=== PATIENT | female | born 1980 | race Caucasian/White ===

== ENCOUNTER → 2018-05-08 17:11 | Outpatient (REF) | payer OTHER, SELFPAY ==
[2018-05-08 17:14] LABS: HCG Quantitative /Beta subunit < 2.39 mIU/mL
== END ==
LOC: LAB 17:11
PROVIDERS: Visit Provider Family Medicine
DX: N91.2 Amenorrhea, unspecified (principal)
CPT/HCPCS: 84702

== ENCOUNTER → 2021-12-20 16:39 | Outpatient (CLI) | payer OTHER, SELFPAY ==
[2021-12-20 17:50] LABS: INR 1.1 (0.9-1.3); Prothrombin Time 12.7 SECONDS (10.1-12.7)
[2021-12-20 17:59] LABS: Alanine Aminotransferase 19 IU/L (<35); Albumin 4.2 g/dL (3.5-5.0); Albumin Globulin Ratio 1.4 (1.0-2.8); Alkaline Phosphatase 39 U/L (38-126); Aspartate Aminotransferase 29 IU/L (14-36); BUN Creatinine Ratio 14.3 (6-22); Bilirubin Total 0.9 mg/dL (0.2-1.3); Blood Urea Nitrogen 10 mg/dL (7-17); C-Reactive Protein Quant < 0.5 mg/dL (<1.0); Calcium 9.1 mg/dL (8.4-10.2); Carbon Dioxide 28 mmol/L (22-32); Chloride 101 mmol/L (98-107); Estimated Glomerular Filt Rate > 60 mL/min (>60); Globulin 3.1 g/dL (1.7-4.1); Glucose 84 mg/dL (70-100); HEMOLYSIS < 15 (0-50); Magnesium 1.9 mg/dL (1.6-2.3); Sodium 135 mmol/L (137-145); Total Protein 7.3 g/dL (6.3-8.2)
[2021-12-20 18:26] LABS: TSH w/ Reflex to FT4 0.79 uIU/mL (0.47-4.68)
== END ==
PROVIDERS: Referring Provider Family Medicine; Visit Provider Family Medicine
DX: F90.1 Attention-deficit hyperactivity disorder, predominantly hyperactive type (principal); M79.10 Myalgia, unspecified site; T14.8XXA Other injury of unspecified body region, initial encounter
CPT/HCPCS: 36415; 80053; 83735; 84443; 85610; 86140

== ENCOUNTER 2022-11-07 12:42 | Emergency (ER) | payer OTHER, SELFPAY ==
[2022-11-07 12:48] VITALS: BP 123/74; PULSE 83; RESP 16; TEMP 36.4; O2SAT 100
--- NOTE | 2022-11-07 12:58 | DI.CT.S_ITS ---
PROCEDURE: CT ABDOMEN PELVIS W CON INDICATIONS: Abdominal distention, bloating, right lower quadrant pain TECHNIQUE: After the administration of intravenous contrast, axial sections acquired from the lung bases to the pubic symphysis. Coronal and sagittal reformats were performed. For radiation dose reduction, the following was used: automated exposure control, adjustment of mA and/or kV according to patient size. COMPARISON: None. FINDINGS: Image quality: Excellent. Lung bases: Unremarkable. Heart: No significant findings. ABDOMEN: Liver: Unremarkable. Gallbladder: Unremarkable. Biliary ducts: Unremarkable. Pancreas: Unremarkable. Spleen: Unremarkable. Adrenal Glands: Unremarkable. Kidneys and Ureters: Unremarkable. Stomach and Bowel: Moderately large fecal load. The appendix is not identified. There are no secondary signs of acute appendicitis. Peritoneum: No abnormal intraperitoneal fluid. No free air. Ventral Wall: No hernias. Abdominal Nodes: No retroperitoneal or mesenteric adenopathy by size criteria. Vessels: Aorta and inferior vena cava are normal in size. PELVIS: Pelvic Organs: Unremarkable uterus. There is a right adnexal cyst which measures 2.8 cm. . Bladder: Unremarkable. Pelvic Nodes: No enlarged lymph nodes. Miscellaneous: No hernias are seen. Bones: Unremarkable. IMPRESSION: 1. No appendix is visualized. No secondary signs of acute appendicitis. Moderately large fecal load. 2. 2.8 cm cystic lesion of the right adnexa. Dictated by: Tl Corbett M.D. on 11/07/2022 at 13:52 Approved by: Tl Corbett M.D. on 11/07/2022 at 13:56
--- NOTE | 2022-11-07 13:02 | ED_ITS ---
HPI - Abdominal Pain <MARIALUISA Shipley - Last Filed: 11/07/22 15:25> General Chief Complaint: Abdominal Pain Stated Complaint: stomach has tripled in size/pain Time Seen by Provider: 11/07/22 12:56 Source: patient Mode of arrival: Ambulatory History of Present Illness HPI narrative: This is a 41 presents emergency department complaining of right lower quadrant pain, bloating and generalized abdominal distension which has gotten worse since 5 days ago. Denies vaginal discharge or bleeding. Has a remote history of tubal ligation 7 years ago. She states that her last menstrual period was 10/27/2022, denies abnormal vaginal discharge, complains of right sided pelvic and lower quadrant pain with mild nausea. Denies recent fatigue, fever, chills, vomiting, illness, stool changes or any urinary changes. Related Data Home Medications Medication Instructions Recorded Confirmed CA/FE/FOLIC ACID/VIT A/VIT B 1 tab PO QDAY ##0 08/13/11 (# VITAMIN) Allergies Allergy/AdvReac Type Severity Reaction Status Date / Time Latex, Natural Rubber Allergy Severe Hives Verified 11/07/22 14:56 adhesive Allergy Mild Verified 11/07/22 14:56 aloe Allergy Mild Verified 11/07/22 14:56 nut - unspecified Allergy Unknown Verified 11/07/22 14:56 hydrocodone AdvReac Mild NAUSEA Verified 11/07/22 14:56 Review of Systems <MARIALUISA Shipley - Last Filed: 11/07/22 15:25> Review of Systems ROS Unobtainable: All systems reviewed & are unremarkable except as noted in HPI and below Patient History <MARIALUISA Shipley - Last Filed: 11/07/22 15:25> Social History Smoking Status: Never smoker Smoking Status: Never smoker alcohol intake frequency: holidays/special occasions only Substance Use Type: does not use Exam <MARIALUISA Shipley - Last Filed: 11/07/22 15:25> Narrative Exam Narrative: Reviewed vitals signs and nursing notes. General: Pleasant, sitting upright, in no acute distress, well groomed, afebrile HEENT: symmetrical facial expressions, moist mucous membranes, neck is supple CV: regular rate and rhythm, warm extremities Respiratory: normal work of breathing, without tachypnea or hypoxia. GI: abdomen soft, mild distention, no CVA tenderness, her abdomen is tender to the right lower quadrant as well as the right pelvic region, she reports it was painful in the drive over and walking causes pain to the whole generalized right lower quadrant region MSK: moves all extremities, no weakness, normal tone, ambulatory without deficit Skin: brisk capillary refill, without rash or wound Neuro: clear speech and normal cognition, A&O x3, GCS 15, no focal motor or sensation deficits Initial Vital Signs Initial Vital Signs: Vital Signs Temperature 97.6 F 11/07/22 12:48 Pulse Rate 83 11/07/22 12:48 Respiratory Rate 16 11/07/22 12:48 Blood Pressure 123/74 11/07/22 12:48 Pulse Oximetry 100 11/07/22 12:48 Oxygen Delivery Method Room Air 11/07/22 12:48 <Neymar Conti DO - Last Filed: 11/08/22 06:30> Initial Vital Signs Initial Vital Signs: Vital Signs Temperature 97.6 F 11/07/22 12:48 Pulse Rate 83 11/07/22 12:48 Respiratory Rate 16 11/07/22 12:48 Blood Pressure 123/74 11/07/22 12:48 Pulse Oximetry 100 11/07/22 12:48 Oxygen Delivery Method Room Air 11/07/22 12:48 Course <MARIALUISA Shipley - Last Filed: 11/07/22 15:25> Orders Ordered: Discontinued Medications Polyethylene Glycol (Polyethylene Glycol 3350 17 Gm Powd.Pack) 17 gm PO NOW ONE Stop: 11/07/22 14:03 Last Admin: 11/07/22 14:57 Dose: 17 gm Documented By: KOJO Vital Signs Vital signs: Vital Signs - 8 hr 11/07/22 12:48 11/07/22 14:58 Temperature 97.6 F Pulse Rate 83 70 Respiratory Rate 16 14 Blood Pressure 123/74 124/78 Pulse Oximetry 100 99 Oxygen Delivery Method Room Air Room Air <Neymar Conti DO - Last Filed: 11/08/22 06:30> Orders Ordered: Discontinued Medications Polyethylene Glycol (Polyethylene Glycol 3350 17 Gm Powd.Pack) 17 gm PO NOW ONE Stop: 11/07/22 14:03 Last Admin: 11/07/22 14:57 Dose: 17 gm Documented By: KOJO Vital Signs Vital signs: Vital Signs - 8 hr 11/07/22 12:48 11/07/22 14:58 Temperature 97.6 F Pulse Rate 83 70 Respiratory Rate 16 14 Blood Pressure 123/74 124/78 Pulse Oximetry 100 99 Oxygen Delivery Method Room Air Room Air MDM - Abdominal Pain <SHARON ShipleyP - Last Filed: 11/07/22 15:25> Lab Data 11/07/22 13:25 11/07/22 13:25 Labs: Lab Results 11/07/22 11/07/22 11/07/22 Range/Units 13:16 13:25 13:25 WBC 6.0 (4.5-11.0) X10^3/uL RBC 4.32 (4.0-5.2) X10^6/uL Hgb 12.9 (12.0-16.0) g/dL Hct 38.2 (36-46) % MCV 88.6 (80-100) fL MCH 30.0 (26-34) PG MCHC 33.8 (30-36) % RDW 12.5 (11.6-14.8) % Plt Count 176 (150-400) X10^3/uL Neut % (Auto) 58.7 (50-75) % Lymph % (Auto) 34.7 (25-40) % [place] % (Auto) 5.3 (3-14) % Eos % (Auto) 0.8 L (2-4) % Baso % (Auto) 0.5 (0-2) % Neut # (Auto) 3500 (7930-0415) /uL Lymph # (Auto) 2100 (5178-0277) /uL [place] # (Auto) 300 (0-900) /uL Eos # (Auto) 0 (0-450) /uL Baso # (Auto) 0 (0-100) /uL Sodium 138 (137-145) mmol/L Potassium 3.8 (3.4-5.1) mmol/L Chloride 101 (98-107) mmol/L Carbon Dioxide 29 (22-32) mmol/L BUN 10 (7-17) mg/dL Creatinine 0.65 (0.52-1.04) mg/dL Estimated GFR > 60 (>60) mL/min BUN/Creatinine Ratio 15.4 (6-22) Glucose 95 (70-100) mg/dL Calcium 9.3 (8.4-10.2) mg/dL Total Bilirubin 0.5 (0.2-1.3) mg/dL AST 24 (14-36) IU/L ALT 19 (<35) IU/L Alkaline Phosphatase 35 L (38-126) U/L Total Protein 7.6 (6.3-8.2) g/dL Albumin 4.4 (3.5-5.0) g/dL Globulin 3.2 (1.7-4.1) g/dL Albumin/Globulin Ratio 1.4 (1.0-2.8) Lipase 77 (23-300) U/L HCG, Quant mIU/mL Urine RBC None seen (0-5/HPF) Urine WBC None seen (0-5/HPF) Ur Squamous Epith Cells 0-1 /hpf (0-5/HPF) Urine Bacteria None seen (None) Ur Culture Indicated? Cult not indicated 11/07/22 Range/Units 13:25 WBC (4.5-11.0) X10^3/uL RBC (4.0-5.2) X10^6/uL Hgb (12.0-16.0) g/dL Hct (36-46) % MCV (80-100) fL MCH (26-34) PG MCHC (30-36) % RDW (11.6-14.8) % Plt Count (150-400) X10^3/uL Neut % (Auto) (50-75) % Lymph % (Auto) (25-40) % [place] % (Auto) (3-14) % Eos % (Auto) (2-4) % Baso % (Auto) (0-2) % Neut # (Auto) (2805-3292) /uL Lymph # (Auto) (8860-6450) /uL [place] # (Auto) (0-900) /uL Eos # (Auto) (0-450) /uL Baso # (Auto) (0-100) /uL Sodium (137-145) mmol/L Potassium (3.4-5.1) mmol/L Chloride (98-107) mmol/L Carbon Dioxide (22-32) mmol/L BUN (7-17) mg/dL Creatinine (0.52-1.04) mg/dL Estimated GFR (>60) mL/min BUN/Creatinine Ratio (6-22) Glucose (70-100) mg/dL Calcium (8.4-10.2) mg/dL Total Bilirubin (0.2-1.3) mg/dL AST (14-36) IU/L ALT (<35) IU/L Alkaline Phosphatase (38-126) U/L Total Protein (6.3-8.2) g/dL Albumin (3.5-5.0) g/dL Globulin (1.7-4.1) g/dL Albumin/Globulin Ratio (1.0-2.8) Lipase (23-300) U/L HCG, Quant < 2.4 mIU/mL Urine RBC (0-5/HPF) Urine WBC (0-5/HPF) Ur Squamous Epith Cells (0-5/HPF) Urine Bacteria (None) Ur Culture Indicated? Point of care testing: Point of Care Testing Test Results Negative Urine Dip Bedside Urine Glucose Negative Bedside Urine Bilirubin - Negative Bedside Urine Ketone - Negative Urine Specific Fowler 1.015 Bedside Urine Occult Blood - Negative Bedside Urine pH 6.0 Bedside Urine Protein - Negative Bedside Urine Urobilinogen - Negative Bedside Urine Nitrite - Negative Bedside Urine Leukocytes - Negative Esterase Imaging Data CT scan - abdomen/pelvis: Radiologist's Impression: [place] [address] CT Scan Report Signed Patient: Rosaline Blanco MR#: [id number] : 1980 Acct:[id number] Age/Sex: 41 / F Date of Service: 11/07/22 Loc: ED Accession Number: [id number] ?? Procedure: CT abdomen pelvis w con Ordering Provider: Consuelo Pham PROCEDURE:? CT ABDOMEN PELVIS W CON ? INDICATIONS:? Abdominal distention, bloating, right lower quadrant pain ? TECHNIQUE:? After the administration of intravenous contrast, axial sections acquired from the lung bases to the pubic symphysis.? Coronal and sagittal reformats were performed.? For radiation dose reduction, the following was used:? automated exposure control, adjustment of mA and/or kV according to patient size.? ? COMPARISON:? None. ? FINDINGS:? Image quality:? Excellent.? ? Lung bases:? Unremarkable. Heart:? No significant findings. ? ABDOMEN: Liver:? Unremarkable.? ? Gallbladder:? Unremarkable.? ? Biliary ducts:? Unremarkable.? ? Pancreas:? Unremarkable.? ? Spleen:? Unremarkable.? ? Adrenal Glands:? Unremarkable.? ? Kidneys and Ureters:? Unremarkable.? ? ? Stomach and Bowel:? Moderately large fecal load.? The appendix is not identified.? There are no secondary signs of acute appendicitis. Peritoneum:? No abnormal intraperitoneal fluid.? No free air.? ? Ventral Wall: ? No hernias.? Abdominal Nodes:? No retroperitoneal or mesenteric adenopathy by size criteria.? Vessels:? Aorta and inferior vena cava are normal in size.? ? PELVIS: Pelvic Organs:? Unremarkable uterus.? There is a right adnexal cyst which measures 2.8 cm. .? ? Bladder:? Unremarkable.? ? Pelvic Nodes: No enlarged lymph nodes.? Miscellaneous: No hernias are seen. ? ? ? Bones:? Unremarkable.? IMPRESSION:? ? 1. No appendix is visualized.? No secondary signs of acute appendicitis.? Moderately large fecal load.? ? 2. 2.8 cm cystic lesion of the right adnexa.? ? Dictated by: Tl Corbett M.D. on 11/07/2022 at 13:52 ? ? Approved by: Tl Corbett M.D. on 11/07/2022 at 13:56 ? US - MAGNETIC RESONANCE IMAGING COORDINATOR: Radiologist's Impression: Ultrasound Report Signed Patient: Rosaline Blanco MR#: [id number] : 1980 Acct:[id number] Age/Sex: 41 / F Date of Service: 11/07/22 Loc: ED Accession Number: [id number] ?? Procedure: US pelvic complete Ordering Provider: Consuelo Pham PROCEDURE:? US PELVIC COMPLETE ? INDICATIONS:? RIGHT ADNEXAL CYSTIC LESION ? TECHNIQUE:? Real-time scanning was performed of the pelvic organs, with image documentation.? Additional endovaginal scanning was necessary due to incomplete visualization of the adnexal and endometrial structures by transabdominal scanning.? ? COMPARISON:? None. ? FINDINGS:? ?? Uterus:? Uterus is anteverted and normal in size at 10.3 x 5.5 x 6.8 cm. The myometrium is homogeneous. ? The endometrium measures 10.2 mm combined thickness.? ? Ovaries:? The right ovary measures 3.8 x 3.2 x 2.9 cm, with a calculated ovarian volume of 19 cc. The left ovary measures 3.2 x 2.8 x 2.4 cm, with a calculated ovarian volume of 11 cc. The ovaries have a normal sonographic appearance. Less than 12 follicles can be seen in each ovary.? No adnexal masses are seen.? Right ovarian follicle with internal anechoic signal measuring 2.7 cm. ? Other:? No pathologic free abdominal or pelvic fluid. ? ? IMPRESSION:? Benign right ovarian follicle.? No evidence of torsion. ? ? We strive to produce accurate, complete, and clear reports of imaging services. To assist us in improving patient care, this report was composed using standard report templates and voice recognition software. Therefore, it may contain abnormal punctuation, insertions and/or omissions. Occasional wrong-word or sound-alike substitutions may occur. Though we review the report and make efforts to correct it, we do recommend that the report be read carefully in proper context to recognize any text inaccuracies. ? ? Dictated by: Ken Guerra M.D. on 11/07/2022 at 14:52 ? ? Approved by: Ken Guerra M.D. on 11/07/2022 at 14:54 ? MDM Narrative Medical decision making narrative: Chief Complaint: bloating Multiple etiologies for patient's complaint considered including, but not limited to: Constipation, bloating without complication, ascites, urinary tract infection, premenstrual symptoms I have independently reviewed the patient's vital signs and nursing notes as well as prior records if available. Plan: Labs, UA, urine , CT abdomen pelvis Patient's urine dip is negative for WBCs, RBCs, leukocyte esterase, and POC urine is negative. Patient reports that she has remote history of ectopic x1, with IUD in place, and has 5 children at home. She states her has a vasectomy but she has had complicated history so she is concerned about abnormal (ectopic) due to her history. Urine microscopy is nega tive for abnormality. Course of Care: CT came to take patient to CT at 13:15 CT is negative for appendicitis, no secondary signs of appendicitis, a 2.8 cm cystic lesion of the right adnexa was visualized, ordered pelvic ultrasound to evaluate for complexity, CT also shows a moderately large fecal load without bowel obstruction. Lab work overall is reassuring, no leukocytosis, no elevation in liver enzymes, unremarkable both on the CBC and CMP. Urine is negative for abnormality. Pelvic ultrasound shows a 2.8 cm simple cyst of the right ovary, without complication, septations or ovarian torsion. Encourage patient to use ibuprofen, stay hydrated, take MiraLax to soften her stool and reduce her right lower quadrant pain, encouraged her to follow-up with Dr. Murcia as needed. Social considerations that may affect disposition: none Questions are addressed and there is agreement with the plan and for follow-up. I consulted with the ED attending physician Dr. Conti as needed for higher level of care considerations and they were available for discussion and recommendations regarding plan of care and diagnostic testing. Patient is appropriate for outpatient management. <Neymar Conti, DO - Last Filed: 11/08/22 06:30> Lab Data Labs: Lab Results 11/07/22 11/07/22 11/07/22 Range/Units 13:16 13:25 13:25 WBC 6.0 (4.5-11.0) X10^3/uL RBC 4.32 (4.0-5.2) X10^6/uL Hgb 12.9 (12.0-16.0) g/dL Hct 38.2 (36-46) % MCV 88.6 (80-100) fL MCH 30.0 (26-34) PG MCHC 33.8 (30-36) % RDW 12.5 (11.6-14.8) % Plt Count 176 (150-400) X10^3/uL Neut % (Auto) 58.7 (50-75) % Lymph % (Auto) 34.7 (25-40) % [place] % (Auto) 5.3 (3-14) % Eos % (Auto) 0.8 L (2-4) % Baso % (Auto) 0.5 (0-2) % Neut # (Auto) 3500 (9924-8008) /uL Lymph # (Auto) 2100 (2219-5216) /uL [place] # (Auto) 300 (0-900) /uL Eos # (Auto) 0 (0-450) /uL Baso # (Auto) 0 (0-100) /uL Sodium 138 (137-145) mmol/L Potassium 3.8 (3.4-5.1) mmol/L Chloride 101 (98-107) mmol/L Carbon Dioxide 29 (22-32) mmol/L BUN 10 (7-17) mg/dL Creatinine 0.65 (0.52-1.04) mg/dL Estimated GFR > 60 (>60) mL/min BUN/Creatinine Ratio 15.4 (6-22) Glucose 95 (70-100) mg/dL Calcium 9.3 (8.4-10.2) mg/dL Total Bilirubin 0.5 (0.2-1.3) mg/dL AST 24 (14-36) IU/L ALT 19 (<35) IU/L Alkaline Phosphatase 35 L (38-126) U/L Total Protein 7.6 (6.3-8.2) g/dL Albumin 4.4 (3.5-5.0) g/dL Globulin 3.2 (1.7-4.1) g/dL Albumin/Globulin Ratio 1.4 (1.0-2.8) Lipase 77 (23-300) U/L HCG, Quant mIU/mL Urine RBC None seen (0-5/HPF) Urine WBC None seen (0-5/HPF) Ur Squamous Epith Cells 0-1 /hpf (0-5/HPF) Urine Bacteria None seen (None) Ur Culture Indicated? Cult not indicated 11/07/22 Range/Units 13:25 WBC (4.5-11.0) X10^3/uL RBC (4.0-5.2) X10^6/uL Hgb (12.0-16.0) g/dL Hct (36-46) % MCV (80-100) fL MCH (26-34) PG MCHC (30-36) % RDW (11.6-14.8) % Plt Count (150-400) X10^3/uL Neut % (Auto) (50-75) % Lymph % (Auto) (25-40) % [place] % (Auto) (3-14) % Eos % (Auto) (2-4) % Baso % (Auto) (0-2) % Neut # (Auto) (5402-9315) /uL Lymph # (Auto) (8330-2954) /uL [place] # (Auto) (0-900) /uL Eos # (Auto) (0-450) /uL Baso # (Auto) (0-100) /uL Sodium (137-145) mmol/L Potassium (3.4-5.1) mmol/L Chloride (98-107) mmol/L Carbon Dioxide (22-32) mmol/L BUN (7-17) mg/dL Creatinine (0.52-1.04) mg/dL Estimated GFR (>60) mL/min BUN/Creatinine Ratio (6-22) Glucose (70-100) mg/dL Calcium (8.4-10.2) mg/dL Total Bilirubin (0.2-1.3) mg/dL AST (14-36) IU/L ALT (<35) IU/L Alkaline Phosphatase (38-126) U/L Total Protein (6.3-8.2) g/dL Albumin (3.5-5.0) g/dL Globulin (1.7-4.1) g/dL Albumin/Globulin Ratio (1.0-2.8) Lipase (23-300) U/L HCG, Quant < 2.4 mIU/mL Urine RBC (0-5/HPF) Urine WBC (0-5/HPF) Ur Squamous Epith Cells (0-5/HPF) Urine Bacteria (None) Ur Culture Indicated? Point of care testing: Point of Care Testing Test Results Negative Urine Dip Bedside Urine Glucose Negative Bedside Urine Bilirubin - Negative Bedside Urine Ketone - Negative Urine Specific Fowler 1.015 Bedside Urine Occult Blood - Negative Bedside Urine pH 6.0 Bedside Urine Protein - Negative Bedside Urine Urobilinogen - Negative Bedside Urine Nitrite - Negative Bedside Urine Leukocytes - Negative Esterase Discharge Plan Departure Patient Disposition: Home Clinical Impression: Right lower quadrant abdominal pain Ovarian cyst Qualifiers: Laterality: right Qualified Code(s): N83.201 - Unspecified ovarian cyst, right side Instructions: Ovarian Cyst Activity Restrictions/Additional Instructions: *You have been diagnosed with a simple right-sided ovarian cyst without complication. No evidence of ovarian torsion, your test was negative both your urine and blood tests, no signs of appendicitis or any free fluid in your abdomen. He has a moderate amount of stool in her colon, please use MiraLax to soften this to reduce your right lower quadrant pain related to your ovarian cyst. Okay to use MiraLax daily, that will help decrease your fecal load and not cause diarrhea. Stay hydrated, is a pleasure to meet you, there still is and will always only be 7 of you. Congratulations on your family. Happy that you enjoy the rest of your holiday week. :) Okay to use ibuprofen for this pain, it may help quite a bit. *What to do: *Please continue to take your regular medications as directed. [ ] New medication prescriptions sent to your pharmacy: [ ] [ ] New medication written as a paper prescription [x ] No new medications given *Please call and schedule follow up with your primary care provider in 2-3 days, at least for an update. Let them know you were seen in the Emergency Department for the above problem. We will electronically transmit a record of today's note if your PCP or specialist is in our system. *If you do not have a primary care provider please contact [phone] to establish care with one of the [facility] primary care providers. *Return to the Emergency Department for worsening symptoms, inability to keep liquids down, fever greater than 101F, chills, or other concerning symptom. Prescriptions: No Action CA/FE/FOLIC ACID/VIT A/VIT B (# VITAMIN) 1 tab PO QDAY Qty: 0 Referrals: Marisabel Murcia MD [Physician] - Stand Alone Forms: Patient Portal/API <Neymar Conti DO - Last Filed: 11/08/22 06:30> [facility] ED Attending Krzysztofature Attestation: I was immediately available in the department for consultation. Documentation has been reviewed. I agree with assessment and plan.
[2022-11-07 13:32] LABS: Bacteria Urine None Seen; Culture Indicated Urine Cult Not Indicated; RBC Urine None Seen (0-5/HPF); Squamous Epithelial Cell Urine 0-1 /HPF (0-5/HPF); WBC Urine None Seen (0-5/HPF)
[2022-11-07 13:47] LABS: Add Manual Diff / Slide Review NO; Basophils Absolute Auto 0 /uL (0-100); Basophils Percent Auto 0.5 % (0-2); Eosinophils Absolute Auto 0 /uL (0-450); Eosinophils Percent Auto 0.8 % (2-4); Hematocrit 38.2 % (36-46); Hemoglobin 12.9 g/dL (12.0-16.0); Lymphocytes Absolute Auto 2100 /uL (1100-4500); Lymphocytes Percent Auto 34.7 % (25-40); Mean Corpuscular HGB Conc 33.8 % (30-36); Mean Corpuscular Volume 88.6 fL (80-100); Monocytes Absolute Auto 300 /uL (0-900); Monocytes Percent Auto 5.3 % (3-14); Neutrophils Absolute Auto 3500 /uL (1500-7000); Neutrophils Percent Auto 58.7 % (50-75); Platelet Count 176 X10^3/uL (150-400); Red Blood Cell Count 4.32 X10^6/uL (4.0-5.2); Red Cell Distribution Width 12.5 % (11.6-14.8)
--- NOTE | 2022-11-07 14:01 | DI.US.S_ITS ---
PROCEDURE: US PELVIC COMPLETE INDICATIONS: RIGHT ADNEXAL CYSTIC LESION TECHNIQUE: Real-time scanning was performed of the pelvic organs, with image documentation. Additional endovaginal scanning was necessary due to incomplete visualization of the adnexal and endometrial structures by transabdominal scanning. COMPARISON: None. FINDINGS: Uterus: Uterus is anteverted and normal in size at 10.3 x 5.5 x 6.8 cm. The myometrium is homogeneous. The endometrium measures 10.2 mm combined thickness. Ovaries: The right ovary measures 3.8 x 3.2 x 2.9 cm, with a calculated ovarian volume of 19 cc. The left ovary measures 3.2 x 2.8 x 2.4 cm, with a calculated ovarian volume of 11 cc. The ovaries have a normal sonographic appearance. Less than 12 follicles can be seen in each ovary. No adnexal masses are seen. Right ovarian follicle with internal anechoic signal measuring 2.7 cm. Other: No pathologic free abdominal or pelvic fluid. IMPRESSION: Benign right ovarian follicle. No evidence of torsion. We strive to produce accurate, complete, and clear reports of imaging services. To assist us in improving patient care, this report was composed using standard report templates and voice recognition software. Therefore, it may contain abnormal punctuation, insertions and/or omissions. Occasional wrong-word or sound-alike substitutions may occur. Though we review the report and make efforts to correct it, we do recommend that the report be read carefully in proper context to recognize any text inaccuracies. Dictated by: Ken Guerra M.D. on 11/07/2022 at 14:52 Approved by: Ken Guerra M.D. on 11/07/2022 at 14:54
[2022-11-07 14:10] LABS: Alanine Aminotransferase 19 IU/L (<35); Albumin 4.4 g/dL (3.5-5.0); Albumin Globulin Ratio 1.4 (1.0-2.8); Alkaline Phosphatase 35 U/L (38-126); Aspartate Aminotransferase 24 IU/L (14-36); BUN Creatinine Ratio 15.4 (6-22); Bilirubin Total 0.5 mg/dL (0.2-1.3); Blood Urea Nitrogen 10 mg/dL (7-17); Calcium 9.3 mg/dL (8.4-10.2); Carbon Dioxide 29 mmol/L (22-32); Chloride 101 mmol/L (98-107); Estimated Glomerular Filt Rate > 60 mL/min (>60); Globulin 3.2 g/dL (1.7-4.1); Glucose 95 mg/dL (70-100); HEMOLYSIS < 15 (0-50); Lipase 77 U/L (23-300); Potassium 3.8 mmol/L (3.4-5.1); Sodium 138 mmol/L (137-145); Total Protein 7.6 g/dL (6.3-8.2)
[2022-11-07 14:24] LABS: HCG Quantitative /Beta subunit < 2.4 mIU/mL
[2022-11-07] MEDS: polyethylene glycoL 3350 17 GM POWD.PACK PO (14:57)
[2022-11-07 14:58] VITALS: BP 124/78; PULSE 70; RESP 14; O2SAT 99
== END 2022-11-07 15:00 | disposition home or self-care (01) ==
PROVIDERS: Emergency Provider Nurse Practitioner Critical Care Medicine
DX: N83.201 Unspecified ovarian cyst, right side (principal); R10.31 Right lower quadrant pain
CPT/HCPCS: 36415; 74177; 76830; 76856; 80053; 81003; 81015; 81025; 83690; 84702; 85025; 93976; 99284; Q9967

== ENCOUNTER 2022-12-14 04:06 | Emergency (ER) | payer OTHER, SELFPAY ==
[2022-12-14 04:07] VITALS: BP 132/86; PULSE 80; RESP 18; TEMP 36.2; O2SAT 100; BMI 21.7
--- NOTE | 2022-12-14 04:20 | DI.RAD.S_ITS ---
PROCEDURE: XR CHEST 1V INDICATIONS: chest pain TECHNIQUE: One view of the chest was acquired. COMPARISON: [facility], , CHEST 2 VIEW, 07/11/2017, 15:25. FINDINGS: Surgical changes and devices: None. Lungs and pleura: Lungs are clear. No pleural effusions or pneumothorax. Mediastinum: Mediastinal contours appear normal. Heart size is normal. Bones and chest wall: No suspicious bony lesions. Overlying soft tissues appear unremarkable. IMPRESSION: No acute cardiopulmonary abnormality. Dictated by: Rush Myrick M.D. on 12/14/2022 at 7:47 Approved by: Rush Myrick M.D. on 12/14/2022 at 7:47
[2022-12-14 04:32] LABS: Add Manual Diff / Slide Review NO; Basophils Absolute Auto 0 /uL (0-100); Basophils Percent Auto 0.3 % (0-2); Eosinophils Absolute Auto 100 /uL (0-450); Eosinophils Percent Auto 0.6 % (2-4); Hematocrit 35.6 % (36-46); Hemoglobin 12.1 g/dL (12.0-16.0); Lymphocytes Absolute Auto 2300 /uL (1100-4500); Lymphocytes Percent Auto 21.5 % (25-40); Mean Corpuscular HGB Conc 34.1 % (30-36); Mean Corpuscular Hemoglobin 29.6 PG (26-34); Mean Corpuscular Volume 86.9 fL (80-100); Monocytes Absolute Auto 600 /uL (0-900); Monocytes Percent Auto 5.7 % (3-14); Neutrophils Absolute Auto 7700 /uL (1500-7000); Neutrophils Percent Auto 71.9 % (50-75); Platelet Count 186 X10^3/uL (150-400); Red Cell Distribution Width 12.5 % (11.6-14.8); White Blood Cell Count 10.7 X10^3/uL (4.5-11.0)
[2022-12-14 04:37] LABS: Alanine Aminotransferase 20 IU/L (<35); Albumin 3.9 g/dL (3.5-5.0); Albumin Globulin Ratio 1.2 (1.0-2.8); Alkaline Phosphatase 38 U/L (38-126); Aspartate Aminotransferase 28 IU/L (14-36); BUN Creatinine Ratio 22.4 (6-22); Bilirubin Total 0.6 mg/dL (0.2-1.3); Blood Urea Nitrogen 15 mg/dL (7-17); Carbon Dioxide 26 mmol/L (22-32); Chloride 103 mmol/L (98-107); Creatine Kinase 52 U/L (30-135); Estimated Glomerular Filt Rate > 60 mL/min (>60); Globulin 3.2 g/dL (1.7-4.1); Glucose 120 mg/dL (70-100); HEMOLYSIS 17 (0-50); Lipase 106 U/L (23-300); Potassium 4.1 mmol/L (3.4-5.1); Sodium 134 mmol/L (137-145); Total Protein 7.1 g/dL (6.3-8.2)
[2022-12-14 04:39] LABS: D Dimer 289 ng/ml (<500)
[2022-12-14 04:43] VITALS: PULSE 75; O2SAT 100
--- NOTE | 2022-12-14 04:43 | DI.CT.S_ITS ---
PROCEDURE: CT HEAD/BRAIN WO CON INDICATIONS: multiple syncopal episodes TECHNIQUE: Noncontrast 4.5 mm thick angled axial sections acquired from the foramen magnum to the vertex, with coronal and sagittal reformats. For radiation dose reduction, the following was used: automated exposure control, adjustment of mA and/or kV according to patient size. COMPARISON: Located [facility], CT, HEAD WITHOUT CONTRAST, 06/04/2014, 20:37. FINDINGS: Image quality: Excellent. CSF spaces: Basal cisterns are patent. No extra-axial fluid collections. Ventricles are normal in size and shape. Brain: No midline shift. No intracranial masses or hemorrhage. Layton-white matter interface is normal. Skull and face: Calvarium and visualized facial bones are intact, without suspicious lesions. Sinuses: Visualized sinuses and mastoids are clear. IMPRESSION: 1. No acute intracranial abnormalities. No significant discrepancy with the shift supervisor rn radiology preliminary report. Dictated by: Frances Ferreira M.D. on 12/14/2022 at 7:50 Approved by: Frances Ferreira M.D. on 12/14/2022 at 7:51
[2022-12-14 04:48] LABS: Troponin I < 0.012 ng/mL (0.01-0.034)
[2022-12-14] MEDS: SODIUM CHLORIDE 0.9% 1,000 ML 1000 ML IV (04:48)
--- NOTE | 2022-12-14 05:21 | ED.SYNCOPE ---
HPI - Syncope General Chief Complaint: Syncope Stated Complaint: syncope Time Seen by Provider: 12/14/22 04:06 Source: patient and EMS Mode of arrival: EMS Limitations: no limitations History of Present Illness HPI narrative: Patient is a healthy 42-year-old female presents today after multiple syncopal episodes. She is a mother of 5 trying to have some time to herself she fell sleep on the couch. She woke up went to laundry room and passed out. She woke up on the floor she got up went to the bathroom she was bleeding from her chin and she passed out. She then passed out a 3rd or 4th time, one of them was in the living room and she landed on a potted house plant. She has a laceration on her left posterior thigh, and a small one on her chin. She denies any chest pain or palpitations. She is not had much to drink today. She denies any alcohol use no fevers no other symptoms. Related Data Home Medications Medication Instructions Recorded Confirmed CA/FE/FOLIC ACID/VIT A/VIT B 1 tab PO QDAY ##0 08/13/11 (# VITAMIN) Allergies Allergy/AdvReac Type Severity Reaction Status Date / Time Latex, Natural Rubber Allergy Severe Hives Verified 11/07/22 14:56 adhesive Allergy Mild Verified 11/07/22 14:56 aloe Allergy Mild Verified 11/07/22 14:56 nut - unspecified Allergy Unknown Verified 11/07/22 14:56 hydrocodone AdvReac Mild NAUSEA Verified 11/07/22 14:56 Review of Systems Review of Systems ROS Unobtainable: All systems reviewed & are unremarkable except as noted in HPI and below Patient History Social History Smoking Status: Never smoker Smoking Status: Never smoker alcohol intake frequency: holidays/special occasions only Substance Use Type: does not use Exam Initial Vital Signs Initial Vital Signs: Vital Signs Temperature 97.2 F L 12/14/22 04:07 Pulse Rate 80 12/14/22 04:07 Respiratory Rate 18 12/14/22 04:07 Blood Pressure 132/86 12/14/22 04:07 Pulse Oximetry 100 12/14/22 04:07 Oxygen Delivery Method Room Air 12/14/22 04:07 GENERAL: Alert very pleasant 42-year-old female and in [no acute] distress. HEENT: Head atraumatic,EOMI, pupils reactive, face symmetric, [moist] mucous membrane CARDIOVASCULAR: Regular rate and rhythm without murmurs, rubs or gallops. RESPIRATORY: Breath sounds equal bilaterally, no wheezes rales or rhonchi. ABDOMEN: Soft, nontender. Normoactive bowel sounds all 4 quadrants. No guarding or rebound. EXTREMITIES: Normal range of motion, no clubbing or edema. Neurovascularly intact NEUROLOGICAL: Alert and oriented x4.Normal gait and speech. Cranial nerves II through XII grossly intact. SKIN: Superficial laceration noted on chin some other small contusions on forehead. Left posterior thigh 3 cm laceration, superficial laceration noted on Procedures Laceration Repair Laceration 1: Site: lower extremity Side (If applicable): left Size (cm): 3 Description: linear Depth: simple, single layer Local Anesthetic: lidocaine 1% Amount of anesthesia used (mL): 5 Pre-repair: wound explored and irrigated extensively Skin layer closed with: nylon Skin layer suture size: 4-0 Number of sutures: 4 Technique: simple, interrupted Course Orders Ordered: ED Orders 12/14/22 04:15 Complete Blood Count AUTO DIFF Stat Comprehensive Metabolic Panel Stat D Dimer Stat Lipase Stat Troponin & CK Cardiac Panel Stat 12/14/22 04:20 XR chest 1V Stat EKG-12 Lead Stat 12/14/22 04:43 CT head/brain wo con Stat 12/14/22 06:13 Urine Microscopic Stat Sodium Chloride (Normal Saline 0.9%) 1,000 mls @ 1,000 mls/hr IV CONT IRVING Last Infusion: 12/14/22 06:04 Dose: 0 mls/hr Documented By: Admin: 12/14/22 04:48 Dose: 1,000 mls/hr Documented By: SIMONE Discontinued Medications Lidocaine HCl (Lidocaine 1% (Pf) 5 Ml) 5 ml INJ NOW ONE Stop: 12/14/22 04:21 Last Admin: 12/14/22 05:40 Dose: 5 ml Documented By: SB Vital Signs Vital signs: Vital Signs - 8 hr 12/14/22 04:07 12/14/22 04:43 12/14/22 05:30 Temperature 97.2 F L Pulse Rate 80 75 81 Respiratory Rate 18 18 Blood Pressure 132/86 Pulse Oximetry 100 100 98 Oxygen Delivery Method Room Air MDM - Syncope Lab Data 12/14/22 04:15 12/14/22 04:15 Labs: Lab Results 12/14/22 12/14/22 12/14/22 Range/Units 04:15 04:15 04:15 WBC 10.7 (4.5-11.0) X10^3/uL RBC 4.10 (4.0-5.2) X10^6/uL Hgb 12.1 (12.0-16.0) g/dL Hct 35.6 L (36-46) % MCV 86.9 (80-100) fL MCH 29.6 (26-34) PG MCHC 34.1 (30-36) % RDW 12.5 (11.6-14.8) % Plt Count 186 (150-400) X10^3/uL Neut % (Auto) 71.9 (50-75) % Lymph % (Auto) 21.5 L (25-40) % [place] % (Auto) 5.7 (3-14) % Eos % (Auto) 0.6 L (2-4) % Baso % (Auto) 0.3 (0-2) % Neut # (Auto) 7700 H (9345-3609) /uL Lymph # (Auto) 2300 (3639-3007) /uL [place] # (Auto) 600 (0-900) /uL Eos # (Auto) 100 (0-450) /uL Baso # (Auto) 0 (0-100) /uL D-Dimer 289 (<500) ng/ml Sodium 134 L (137-145) mmol/L Potassium 4.1 (3.4-5.1) mmol/L Chloride 103 (98-107) mmol/L Carbon Dioxide 26 (22-32) mmol/L BUN 15 (7-17) mg/dL Creatinine 0.67 (0.52-1.04) mg/dL Estimated GFR > 60 (>60) mL/min BUN/Creatinine Ratio 22.4 H (6-22) Glucose 120 H (70-100) mg/dL Calcium 9.0 (8.4-10.2) mg/dL Total Bilirubin 0.6 (0.2-1.3) mg/dL AST 28 (14-36) IU/L ALT 20 (<35) IU/L Alkaline Phosphatase 38 (38-126) U/L Total Creatine Kinase 52 (30-135) U/L Troponin I < 0.012 (0.01-0.034) ng/mL Total Protein 7.1 (6.3-8.2) g/dL Albumin 3.9 (3.5-5.0) g/dL Globulin 3.2 (1.7-4.1) g/dL Albumin/Globulin Ratio 1.2 (1.0-2.8) Lipase 106 (23-300) U/L Point of Care Testing Test Results Negative Urine Dip Bedside Urine Glucose Negative Bedside Urine Bilirubin - Negative Bedside Urine Ketone - Negative Urine Specific Gibson 1.015 Bedside Urine Occult Blood +++ Bedside Urine pH 6.0 Bedside Urine Protein - Negative Bedside Urine Urobilinogen - Negative Bedside Urine Nitrite - Negative Bedside Urine Leukocytes - Negative Esterase Imaging Data CT scan - head: Radiologist's Impression: No acute intracranial abnormality Chest x-ray: Radiologist's Impression: No acute cardiopulmonary abnormalities ECG Data Interpretation: Normal sinus rhythm rate 82 NM interval 158 QRS 80 QTC 450 MDM Narrative Medical decision making narrative: Patient 42-year-old female who presents with multiple syncopal episodes tonight. She denies any alcohol use. She reports that she did not eat or drink very much today. She has no insight to the time between episodes. I suspect that episodes for within a few minutes of each other but can not tell. She did fall into a plant she has laceration on her left thigh which is easily repaired. Head CT is negative she is no focal deficits. Seemed to be at her baseline. No abnormal blood work she has no anemia no electrolyte electrolyte abnormality or MELISSA. Troponin EKG are negative.. D-dimer was added and is also negative. She has no evidence of infection. Discussed with her she may need further workup if she passes out again but encouraged her to eat and drink regularly. Discharge Plan Departure Patient Disposition: Home Clinical Impression: Vasovagal syncope Instructions: DI for Syncope in Adults (Fainting) Activity Restrictions/Additional Instructions: Thank you so much for the last in the kindness. You were thankfully not . Eat regularly drink more today. *You have been diagnosed with syncopal episode *What to do: Please stay hydrated. Head CT and other blood work are reassuring today. Have sutures removed in 5-7 days. Keep clean and dry with soap and water. May apply antibiotic ointment 1-2 times daily Have sutures removed in about 5-7 days. Glue will come off on its own *Continue to take medications as directed *Follow up with your primary care provider in 2-3 days or call [phone] *Return to ER if you should have recurrent episode of passing out, redness swelling around sutures [or] any new, worsening or concerning symptoms Prescriptions: No Action CA/FE/FOLIC ACID/VIT A/VIT B (# VITAMIN) 1 tab PO QDAY Qty: 0 Stand Alone Forms: Patient Portal/API
[2022-12-14 05:30] VITALS: PULSE 81; RESP 18; O2SAT 98
[2022-12-14] MEDS: LIDOCAINE 1% (PF) 5 ML INJ (05:40)
[2022-12-14 06:57] LABS: Hyaline Casts Urine 1-5/LPF; RBC Urine 5-10/HPF (0-5/HPF); Squamous Epithelial Cell Urine 5-10 /HPF (0-5/HPF)
[2022-12-14 06:58] LABS: Bacteria Urine Few (2-10); Culture Indicated Urine Cult Not Indicated; WBC Urine 0-1/HPF (0-5/HPF)
== END 2022-12-14 07:01 | disposition home or self-care (01) ==
PROVIDERS: Emergency Provider Emergency Medicine
DX: S81.812A Laceration without foreign body, left lower leg, initial encounter (principal); R55 Syncope and collapse; R07.9 Chest pain, unspecified
CPT/HCPCS: 12002; 36415; 70450; 71045; 80053; 81003; 81015; 81025; 82550; 83690; 84484; 85025; 85379; 93005; 93010; 99284

== ENCOUNTER → 2022-12-19 14:22 | Outpatient (CLI) | payer OTHER, SELFPAY ==
--- NOTE | 2022-12-19 | DI.MG.S_ITS ---
BILATERAL DIGITAL SCREENING MAMMOGRAM 3D/2D WITH CAD: 12/19/2022 CLINICAL: Baseline exam. Routine screening. Family history of breast cancer. No prior exams were available for comparison. Both breasts are heterogeneously dense, which may obscure small masses (category c / 51-75% glandular tissue). Current study was also evaluated with a Computer Aided Detection (CAD) system. No significant masses, calcifications, or other findings are seen in either breast. IMPRESSION: NEGATIVE There is no mammographic evidence of malignancy. A 1 year screening mammogram is recommended. Based on the Tyrer Cuzick model (a risk assessment model) the patient's lifetime risk is 11.5% and her 10 year risk is 1.4%. According to the ACR, ACS, and NCCN guidelines, an annual breast MRI exam along with mammogram is recommended if the patient's lifetime risk is 20% or greater. This exam was interpreted at Station ID: [id number]. NOTE: For mammograms, a report in lay terms will be sent to the patient. Approximately 15% of breast malignancies will not be visualized mammographically. In the management of a palpable breast mass, a negative mammogram must not discourage biopsy of a clinically suspicious lesion. Electronically Signed By: Renetta cervantes/missael:12/19/2022 16:24:31 letter sent: Normal Exam ACR BI-RADS Category 1: Negative 3341F
== END ==
PROVIDERS: PCP Family Medicine; Referring Provider Family Medicine; Visit Provider Family Medicine
DX: Z12.31 Encounter for screening mammogram for malignant neoplasm of breast (principal); Z80.3 Family history of malignant neoplasm of breast
CPT/HCPCS: 77063; 77067

== ENCOUNTER → 2023-02-18 09:13 | Outpatient (CLI) | payer OTHER, SELFPAY ==
--- NOTE | 2023-02-18 | DI.ECHO.S_ITS ---
[facility] +---------+ : : [address] [place] [address] : : : : [id number] : : : : Phone: [phone] Echocardiogram Report + + :Name: HARPREET WATERS Study Date: 02/18/2023 Height: 69 in : :[facility] ReadingLocation: Weight: 145 lb : : Gender: Female BSA: 1.8 m2 : :: 1980 Age: 42 yrs BP: 125/83 mmHg: :Reason For Study: SYNCOPE : :Ordering Physician: FABIAN, : :KAILA Performed By: Rosita Reynolds : :Referring: KAILA PERALTA : + + Interpretation Summary Normal left ventricle size with ejection fraction 50-55%. Left ventricular systolic function is low normal. Normal right ventricle and both atria. No valvular abnormality. Procedure: A two-dimensional transthoracic echocardiogram with color flow and Doppler was performed. The study quality was technically adequate. There is no prior echocardiogram noted for this patient. The patient was in sinus rhythm with heart rates between 67-73 bpm during the exam. Left Ventricle: The left ventricle is normal in size and wall thickness. Left ventricular systolic function is low normal. The ejection fraction is estimated to be 50-55%. There are no focal wall motion abnormalities. Diastolic parameters suggest probable normal left ventricular diastolic function and normal filling pressures. Right Ventricle: The right ventricle is normal in size and function. Atria: The left atrial size is normal. Right atrial size is normal. There is no Doppler evidence for an interatrial shunt. Mitral Valve: The mitral valve is normal in structure and function. There is trace mitral regurgitation. Aortic Valve: The aortic valve is trileaflet. The aortic valve opens well. There is no aortic valve stenosis. No aortic regurgitation is present. Tricuspid Valve: The tricuspid valve is normal in structure and function. There is trace tricuspid regurgitation. Pulmonic Valve: The pulmonic valve leaflets are thin and pliable; valve motion is normal. There is no pulmonic valvular regurgitation. Great Vessels: The aortic root is normal size. The IVC is dilated (diameter is greater than 2.1 cm) yet it collapses greater than 50% with a sniff. This suggests a right atrial pressure of 8 mm Hg. Pericardium/ Pleura There is no pericardial effusion. There is no pleural effusion. MMode/2D Measurements & Calculations LVIDd: 5.7 cm LVOT diam: 2.1 cm LVIDs: 3.8 cm Ao root diam: 2.7 cm FS: 34.1 % Ao Arch Diam (Prox Trans): 2.3 cm EPSS: 0.62 cm IVSd: 0.56 cm LVPWd: 0.72 cm LV canela. diameter/BSA (cm/m^2): 3.2 LV sys. diameter/BSA (cm/m^2): 2.1 LA A2 area: 18.1 cm2 RA long axis: 4.7 cm LA A4 area: 14.9 cm2 RA area: 13.7 cm2 LA length (vol): 4.2 cm RA vol: 34.4 ml LA vol: 54.4 ml RA : 19.1 ml/m2 LA vol index: 30.2 ml/m2 IVC diam: 2.7 cm RVD1 (basal): 3.1 cm RVD2 (mid): 2.8 cm TAPSE: 2.2 cm Doppler Measurements & Calculations Ao V2 max: 103.4 cm/sec LVOT Max Armaan: 77.8 cm/sec Ao V2 mean: 76.4 cm/sec LV V1 max P.4 mmHg Ao max P.3 mmHg LV V1 VTI: 16.2 cm Ao mean P.6 mmHg TERENCE(I,D): 2.3 cm2 Ao V2 VTI: 23.9 cm TERENCE(V,D): 2.5 cm2 sev ratio: 0.68 TERENCE indexed to BSA (cm^2/m^2): 1.3 MV E max armaan: 78.8 cm/sec PA V2 max: 79.1 cm/sec MV A max armaan: 73.5 cm/sec PA V2 mean: 62.3 cm/sec MV E/A: 1.1 PA mean P.7 mmHg Med Peak E' Armaan: 11.9 cm/sec PA pr(Accel): 48.2 mmHg E/E' med: 6.6 Lat Peak E' Armaan: 17.5 cm/sec E/E' lat: 4.5 E/e' average: 5.6 MV dec time: 0.16 sec SV([facility]): 53.8 ml Electronically signed by: Edis Mendez on Reading Physician:02/18/2023 02:58 PM
== END ==
PROVIDERS: PCP Family Medicine; Referring Provider Family Medicine; Visit Provider Family Medicine
DX: R55 Syncope and collapse (principal)
CPT/HCPCS: 93306

== ENCOUNTER 2023-05-08 08:45 | Emergency (ER) | payer OTHER, SELFPAY ==
[2023-05-08] VITALS (39 sets, daily range): BP systolic 101–141; BP diastolic 49–93; PULSE 61–77; RESP 14–26; TEMP 37; O2SAT 79–100; BMI 23.5
--- NOTE | 2023-05-08 09:09 | ED_ITS ---
HPI - General Adult General Chief complaint: Syncope Stated complaint: feels like she is going to pass out Time Seen by Provider: 05/08/23 08:54 Source: patient and family Mode of arrival: Wheelchair History of Present Illness HPI narrative: Patient is a 42-year-old female who arrives by private vehicle for what was initially described as a syncopal episode. While in the waiting room/triage she passed out once again. Patient states she was driving to work this morning. She states she felt very lightheaded. She called her boss and told him that she was going to pass out. She did pull off to the side of the road. Her boss came to her. Per his report she was awake but was very confused. He was the 1 that brought her here to the emergency department. Patient does not remember these events. She does not remember how she got here to the department. She was pale and unresponsive upon arrival but very quickly regained consciousness. She was not confused afterwards. This is very similar to what happened to her back in December of last year where she was seen here in the emergency department after passing out multiple times during the day. Had a head CT and labs and a relatively unremarkable workup. Since that time she has had an echocardiogram that was normal. She also states that she had a Holter monitor for 3 weeks which only showed a 1 time episode of a ?fast heart rate? she states there is referral for her to see an hogshead wrecker but that is yet to happen. Prior to the event today she did not feel palpitations, chest pain, shortness of breath, feeling like her heart was beating fast beating slow. Related Data Home Medications Medication Instructions Recorded Confirmed CA/FE/FOLIC ACID/VIT A/VIT B 1 tab PO QDAY ##0 08/13/11 (# VITAMIN) Allergies Allergy/AdvReac Type Severity Reaction Status Date / Time Latex, Natural Rubber Allergy Severe Hives Verified 11/07/22 14:56 adhesive Allergy Mild Verified 11/07/22 14:56 aloe Allergy Mild Verified 11/07/22 14:56 nut - unspecified Allergy Unknown Verified 11/07/22 14:56 hydrocodone AdvReac Mild NAUSEA Verified 11/07/22 14:56 Review of Systems Constitutional Constitutional: Reports system reviewed and no additional complaints, except as documented Cardiovascular Cardiovascular: Reports system reviewed and no additional complaints, except as documented Respiratory Respiratory: Reports system reviewed and no additional complaints, except as documented Gastrointestinal Gastrointestinal: Reports system reviewed and no additional complaints, except as documented Neurologic Neurologic: Reports system reviewed and no additional complaints, except as documented Hematologic/Lymphatic On Anticoagulants: No Patient History Social History Smoking Status: Never smoker Smoking Status: Never smoker alcohol intake frequency: holidays/special occasions only Substance Use Type: does not use Exam Initial Vital Signs Initial Vital Signs: Vital Signs Temperature 98.6 F 05/08/23 08:53 Pulse Rate 66 05/08/23 08:53 Respiratory Rate 18 05/08/23 08:53 Blood Pressure 103/64 05/08/23 08:53 Pulse Oximetry 98 05/08/23 08:53 Oxygen Delivery Method Room Air 05/08/23 08:53 Const General: cooperative and No ill appearing HENMT Head: normal to inspection and normocephalic Resp Effort & Inspection: normal respiratory effort Auscultation: clear to auscultation bilaterally Cardio Rate: regular rate Rhythm: regular rhythm GI Inspection: normal to inspection and non-distended Neuro General: patient alert, patient awake, patient oriented x3 and moves all extremities Cognition: normal cognition Speech: speech normal Sensory Exam: no sensory deficits noted Extrem General: normal to inspection and capillary refill normal Scores GCS Bill coma scale eye opening: Spontaneous Bill coma scale verbal response: Orientated Bill coma scale motor response: Obey commands Bill coma scale total score: 15 Course Orders Ordered: ED Orders 05/08/23 10:30 Urinalysis and Microscopic Stat Urine Culture Stat Urine Drug Screen, Rapid Stat Discontinued Medications Sodium Chloride (Normal Saline 0.9%) 1,000 mls @ 125 mls/hr IV CONT IRVING Last Infusion: 05/08/23 12:00 Dose: Infused Documented By: Admin: 05/08/23 09:24 Dose: 125 mls/hr Documented By: WAYNE Vital Signs Vital signs: Vital Signs - 8 hr 05/08/23 10:15 05/08/23 10:16 05/08/23 10:16 Pulse Rate 66 64 Respiratory Rate 17 16 Blood Pressure 127/57 L Pulse Oximetry 94 97 05/08/23 10:20 05/08/23 10:21 05/08/23 10:21 Pulse Rate 66 72 Respiratory Rate 20 26 H Blood Pressure 108/52 L Pulse Oximetry 99 100 05/08/23 10:25 05/08/23 10:25 05/08/23 10:30 Pulse Rate 61 63 Respiratory Rate 16 14 Blood Pressure 113/71 Pulse Oximetry 98 99 05/08/23 10:30 05/08/23 10:35 05/08/23 10:35 Pulse Rate 64 Respiratory Rate 18 Blood Pressure 113/70 109/61 Pulse Oximetry 98 05/08/23 10:40 05/08/23 10:40 05/08/23 10:45 Pulse Rate 69 63 Respiratory Rate 20 18 Blood Pressure 110/59 L Pulse Oximetry 99 99 05/08/23 10:45 05/08/23 10:50 05/08/23 10:50 Pulse Rate 69 Respiratory Rate 19 Blood Pressure 116/66 122/67 Pulse Oximetry 100 05/08/23 10:55 05/08/23 10:55 05/08/23 11:00 Pulse Rate 65 67 Respiratory Rate 21 21 Blood Pressure 118/71 Pulse Oximetry 92 79 L 05/08/23 11:01 05/08/23 11:01 05/08/23 11:05 Pulse Rate 70 64 Respiratory Rate 25 H 18 Blood Pressure 141/63 H Pulse Oximetry 82 L 97 05/08/23 11:05 05/08/23 11:10 05/08/23 11:11 Pulse Rate 64 67 Respiratory Rate 21 22 Blood Pressure 102/49 L Pulse Oximetry 98 96 05/08/23 11:11 05/08/23 11:15 05/08/23 11:15 Pulse Rate 65 Respiratory Rate 20 Blood Pressure 131/60 129/64 Pulse Oximetry 98 05/08/23 11:20 05/08/23 11:20 05/08/23 11:25 Pulse Rate 64 Respiratory Rate 18 Blood Pressure 123/55 L 118/62 Pulse Oximetry 97 05/08/23 11:25 05/08/23 11:30 Pulse Rate 66 67 Respiratory Rate 17 19 Blood Pressure 111/62 Pulse Oximetry 97 100 Medical Decision Making Medical Records Medical records reviewed: Yes I reviewed the patient's medical records. Lab Data Lab results reviewed: Yes I reviewed the patient's lab results. 05/08/23 08:58 05/08/23 08:58 Labs: Lab Results 05/08/23 05/08/23 05/08/23 Range/Units 08:58 10:30 10:30 WBC 8.6 (4.5-11.0) X10^3/uL RBC 4.18 (4.0-5.2) X10^6/uL Hgb 12.5 (12.0-16.0) g/dL Hct 36.8 (36-46) % MCV 88.0 (80-100) fL MCH 29.8 (26-34) PG MCHC 33.9 (30-36) % RDW 12.2 (11.6-14.8) % Plt Count 237 (150-400) X10^3/uL Neut % (Auto) 51.8 (50-75) % Lymph % (Auto) 41.3 H (25-40) % Ashley % (Auto) 4.5 (3-14) % Eos % (Auto) 1.9 L (2-4) % Baso % (Auto) 0.5 (0-2) % Neut # (Auto) 4400 (2382-2764) /uL Lymph # (Auto) 3500 (5318-3207) /uL Ashley # (Auto) 400 (0-900) /uL Eos # (Auto) 200 (0-450) /uL Baso # (Auto) 0 (0-100) /uL Sodium 133 L (137-145) mmol/L Potassium 3.6 (3.4-5.1) mmol/L Chloride 101 (98-107) mmol/L Carbon Dioxide 23 (22-32) mmol/L BUN 16 (7-17) mg/dL Creatinine 0.72 (0.52-1.04) mg/dL Estimated GFR > 60 (>60) mL/min BUN/Creatinine Ratio 22.2 H (6-22) Glucose 145 H (70-100) mg/dL Calcium 9.6 (8.4-10.2) mg/dL Total Bilirubin 0.7 (0.2-1.3) mg/dL AST TNP ALT 21 (<35) IU/L Alkaline Phosphatase 28 L (38-126) U/L Total Creatine Kinase 33 (30-135) U/L Troponin I < 0.012 (0.01-0.034) ng/mL Total Protein 7.1 (6.3-8.2) g/dL Albumin 4.2 (3.5-5.0) g/dL Globulin 2.9 (1.7-4.1) g/dL Albumin/Globulin Ratio 1.4 (1.0-2.8) Lipase 89 (23-300) U/L TSH 1.60 (0.47-4.68) uIU/mL Serum , Qual Negative (Negative) Urine Color Yellow Urine Appearance Clear Urine pH 8.5 H Normal (4.5-8.0) Ur Specific [place] 1.015 (1.000-1.035) Urine Protein Trace H (Negative) Urine Glucose (UA) Negative (Negative) g/dL Urine Ketones Negative (NEGATIVE) Urine Occult Blood Negative (Negative) Urine Nitrate Negative (Negative) Urine Bilirubin Negative (NEGATIVE) Urine Urobilinogen 0.2 (0.2) E.U./dL Ur Leukocyte Esterase Negative (NEGATIVE) Urine RBC None seen (0-5/HPF) Urine WBC 1-5/hpf (0-5/HPF) Ur Squamous Epith Cells 0-1 /hpf (0-5/HPF) Urine Bacteria None seen (None) Ur Culture Indicated? Specimen cultured U Opiates 300ng/mL cut Negative (Negative) Ur Oxycodone Screen Negative (Negative) Urine Methadone Screen Negative (Negative) Ur Barbiturates Screen Negative (Negative) U Tricyclic Antidepress Negative (Negative) Ur Phencyclidine Scrn Negative (Negative) Ur Amphetamines Screen Negative (Negative) U Methamphetamines Scrn Negative (Negative) Ur MDMA Scrn (Ecstasy) Negative (Negative) U Benzodiazepines Scrn Negative (Negative) Urine Cocaine Screen Negative (Negative) U Marijuana (THC) Screen Negative (Negative) Urine Specific [place] Normal (Normal) Ethyl Alcohol < 10 ( - 10) mg/dL Ur Creatinine Normal (Normal) Point of Care Testing Glucose POC 137 Point of care testing: Point of Care Testing Glucose POC 137 ECG Data Attestation: I personally reviewed and interpreted this ECG as follows: Interpretation: Sinus rhythm Ventricular rate is 69 Normal axis Normal QRS Normal QTC No ST T wave changes MDM Narrative Medical decision making narrative: Presents today with very similar symptoms as the end of last year. Patient was able to regain consciousness before we were able to get her onto a monitor so I am unsure as to what her rhythm was during the event. She did have another what I would describe as a presyncopal episode while she was on the monitor and it was a normal rate and rhythm at that time. She was not hypotensive. She would imaging studies of her brain the last time this happened it was unremarkable. She has had a Holter monitor and an echocardiogram. Has a referral to see Cardiology but this is yet to be established. Patient became completely normal during her stay here. I had a discussion with her regarding her symptoms. I am unsure the exact etiology. Does not appear to be an electrolyte issue or hypoglycemia. I feel that a vasovagal is unlikely has it lasted longer than what I would expect for vasovagal and it was not positional. She has been eating and drinking normal. She did not have seizure-like activity. Did not appear to be postictal afterwards. I have a strong concern of a potential cardiac arrhythmia because it just fits her clinical presentation although we are unable to establish with on our workup here today. I did discuss the case with the patient's primary doctor. Primary doctor will order an MRI and put in a neurology consult. Advised the patient continue to follow-up with Cardiology. We discussed the importance of making sure that she is always in safe positions to include pulling over when she is driving and avoiding other activities where passing out or falling would be dangerous. Patient was given return precautions and follow-up instructions. She expressed understanding and agreement. Discharge Plan Departure Patient Disposition: Home Clinical Impression: Syncope Instructions: DI for Syncope in Adults (Fainting) Activity Restrictions/Additional Instructions: Recommend that you continue to take all of your medications as directed. I also recommend that you contact the cardiology office for a follow-up. Be sure that you are increasing your fluid intake. Return to the emergency department for new or worsening symptoms. Prescriptions: No Action CA/FE/FOLIC ACID/VIT A/VIT B (# VITAMIN) 1 tab PO QDAY Qty: 0 Referrals: Marisabel Murcia MD [Primary Care Provider] - Stand Alone Forms: Patient Portal/API
--- NOTE | 2023-05-08 09:11 | PC.NURSE ---
Addendum entered by Eda Barraza CNA 05/08/23 09:28: Pt has hx of syncopal episodes since february. pt being followed by cardiology and neurology. Original Note: Pt a&ox4 at this time, however still confused regarding the details prior to arrival. Pt able to answer all questions appropriately and responsive at this time. Pt was accompanied by boss and friend. Boss reports that pt called him to come pick her up because she was feeling extremely dizzy and sweaty. pt passed out in the registration chair and immediately transferred to wheelchair and brought to room. Pt passed out in wheelchair during transfer and arousable only to deep sternal rub. Pt awoke startled and confused and could not recall any details of how she got here. 20G IV inserted by RN & labs drawn. EKG done. Pt lying trendelenberg and lying supine on stretcher. Verbal order for 1L NS fluid bolus from Dr Wills. TRAFFIC POLICE OFFICER intact and VS WNL. BG 137
[2023-05-08 09:13] LABS: Add Manual Diff / Slide Review NO; Basophils Absolute Auto 0 /uL (0-100); Basophils Percent Auto 0.5 % (0-2); Eosinophils Absolute Auto 200 /uL (0-450); Eosinophils Percent Auto 1.9 % (2-4); Hematocrit 36.8 % (36-46); Hemoglobin 12.5 g/dL (12.0-16.0); Lymphocytes Absolute Auto 3500 /uL (1100-4500); Lymphocytes Percent Auto 41.3 % (25-40); Mean Corpuscular HGB Conc 33.9 % (30-36); Mean Corpuscular Hemoglobin 29.8 PG (26-34); Monocytes Absolute Auto 400 /uL (0-900); Monocytes Percent Auto 4.5 % (3-14); Neutrophils Absolute Auto 4400 /uL (1500-7000); Neutrophils Percent Auto 51.8 % (50-75); Platelet Count 237 X10^3/uL (150-400); Red Blood Cell Count 4.18 X10^6/uL (4.0-5.2); Red Cell Distribution Width 12.2 % (11.6-14.8); White Blood Cell Count 8.6 X10^3/uL (4.5-11.0)
[2023-05-08 09:18] LABS: Alanine Aminotransferase 21 IU/L (<35); Albumin 4.2 g/dL (3.5-5.0); Albumin Globulin Ratio 1.4 (1.0-2.8); Alkaline Phosphatase 28 U/L (38-126); BUN Creatinine Ratio 22.2 (6-22); Bilirubin Total 0.7 mg/dL (0.2-1.3); Blood Urea Nitrogen 16 mg/dL (7-17); Calcium 9.6 mg/dL (8.4-10.2); Carbon Dioxide 23 mmol/L (22-32); Chloride 101 mmol/L (98-107); Estimated Glomerular Filt Rate > 60 mL/min (>60); Globulin 2.9 g/dL (1.7-4.1); Glucose 145 mg/dL (70-100); HEMOLYSIS < 15 (0-50); Lipase 89 U/L (23-300); Potassium 3.6 mmol/L (3.4-5.1); Pregnancy Test Serum,Qual Negative (Negative); Sodium 133 mmol/L (137-145); Total Protein 7.1 g/dL (6.3-8.2)
[2023-05-08 09:19] LABS: Ethanol (ETOH) < 10 mg/dL
[2023-05-08] MEDS: SODIUM CHLORIDE 0.9% 1,000 ML 125 ML IV (09:24)
[2023-05-08 10:14] LABS: Creatine Kinase 33 U/L (30-135)
[2023-05-08 10:27] LABS: Troponin I < 0.012 ng/mL (0.01-0.034)
[2023-05-08 10:34] LABS: Appearance Urine UA CLEAR; Bilirubin Urine UA NEGATIVE (NEGATIVE); Color Urine UA YELLOW; Glucose Urine UA NEGATIVE (Negative); Ketones Urine UA NEGATIVE (NEGATIVE); Leukocyte Esterase Urine UA NEGATIVE (NEGATIVE); Nitrite Urine UA NEGATIVE (Negative); Occult Blood Urine UA NEGATIVE (Negative); Protein Urine UA TRACE (Negative); Specific Gravity Urine UA 1.015 (1.000-1.035); Urobilinogen Urine UA 0.2 E.U./dL (0.2)
[2023-05-08 10:35] LABS: Ur Creatinine Normal (Normal); Ur Specific Gravity Normal (Normal); Urine pH Normal (Normal); pH Urine UA 8.5 (4.5-8.0)
[2023-05-08 10:39] LABS: RBC Urine None Seen (0-5/HPF); UR Morphine/Opiate cutoff 300 Negative (Negative); Urine Amphetamines Negative (Negative); Urine Barbiturates Negative (Negative); Urine Benzodiazepines Negative (Negative); Urine Cocaine Negative (Negative); Urine MDMA Negative (Negative); Urine Methadone Negative (Negative); Urine Methamphetamines Negative (Negative); Urine Oxycodone Negative (Negative); Urine Phencyclidine Negative (Negative); Urine Tetrahydrocannabinol Negative (Negative); Urine Tricyclic Antidepressant Negative (Negative)
[2023-05-08 10:40] LABS: Bacteria Urine None Seen; Culture Indicated Urine Specimen Cultured; Squamous Epithelial Cell Urine 0-1 /HPF (0-5/HPF); WBC Urine 1-5/HPF (0-5/HPF)
[2023-05-10 16:03] LABS: Aspartate Aminotransferase 29 IU/L (14-36)
== END 2023-05-08 12:02 | disposition home or self-care (01) ==
PROVIDERS: Emergency Provider Emergency Medicine; PCP Family Medicine
DX: R55 Syncope and collapse (principal)
CPT/HCPCS: 36415; 80053; 80305; 80320; 81001; 82550; 82962; 83690; 84443; 84484; 84703; 85025; 87086; 93005; 96360; 96361; 99284

== ENCOUNTER → 2023-05-31 10:14 | Outpatient (CLI) | payer OTHER, SELFPAY ==
--- NOTE | 2023-05-31 10:19 | DI.MRI.S_ITS ---
PROCEDURE: MR HEAD/BRAIN WO/W CON INDICATIONS: SYNCOPE COLAPSE TECHNIQUE: Noncontrast axial T1 spin echo, axial T2 fast spin echo, sagittal and axial FLAIR, axial gradient echo, axial diffusion and ADC, coronal thin-slice T2 FSE through the brain. Optional contrast, followed by axial and coronal and sagittal 3D VIBE or T1 spin echo with fat saturation sequences through the brain. COMPARISON: None. FINDINGS: Image quality: Excellent. CSF spaces: Ventricles are normal in size and shape. Basal cisterns are patent. No extra-axial fluid collections. Brain: No intracranial bleeds or mass effects. No abnormal intracranial enhancement. Layton-white matter interface appears intact. Diffusion weighted images demonstrate no acute ischemic insults. Brainstem appear normal. Normal intravascular flow voids are present. The hippocampal regions appear normal and symmetric in morphology. Skull and face: Calvarial marrow signal is normal. Orbits appear normal. Sinuses: Sinuses and mastoids are clear. IMPRESSION: Brain MRI within normal limits, without a cause of the patient's presenting symptoms identified. No focus of seizures is identified. No masses or abnormal enhancement can be seen. No prior territorial infarct can be seen. No findings of acute or subacute infarction can be seen. Dictated by: Reilly Odom M.D. on 05/31/2023 at 11:28 Approved by: Reilly Odom M.D. on 05/31/2023 at 11:29
[2023-05-31 12:30] LABS: Add Manual Diff / Slide Review NO; Basophils Absolute Auto 0 /uL (0-100); Basophils Percent Auto 0.3 % (0-2); Eosinophils Absolute Auto 0 /uL (0-450); Hematocrit 38.1 % (36-46); Hemoglobin 12.7 g/dL (12.0-16.0); Lymphocytes Absolute Auto 2000 /uL (1100-4500); Lymphocytes Percent Auto 47.5 % (25-40); Mean Corpuscular HGB Conc 33.3 % (30-36); Mean Corpuscular Volume 90.1 fL (80-100); Monocytes Absolute Auto 200 /uL (0-900); Monocytes Percent Auto 4.8 % (3-14); Neutrophils Absolute Auto 2000 /uL (1500-7000); Neutrophils Percent Auto 46.4 % (50-75); Platelet Count 207 X10^3/uL (150-400); Red Blood Cell Count 4.23 X10^6/uL (4.0-5.2); Red Cell Distribution Width 12.4 % (11.6-14.8); White Blood Cell Count 4.2 X10^3/uL (4.5-11.0)
[2023-05-31 12:48] LABS: Urine Volume 10mL (spun)
[2023-05-31 12:50] LABS: Alanine Aminotransferase 19 IU/L (<35); Albumin 4.4 g/dL (3.5-5.0); Albumin Globulin Ratio 1.4 (1.0-2.8); Alkaline Phosphatase 30 U/L (38-126); Aspartate Aminotransferase 23 IU/L (14-36); Bilirubin Total 0.7 mg/dL (0.2-1.3); Blood Urea Nitrogen 12 mg/dL (7-17); Calcium 9.6 mg/dL (8.4-10.2); Carbon Dioxide 30 mmol/L (22-32); Chloride 101 mmol/L (98-107); Cholesterol 148 mg/dL (140-199); Estimated Glomerular Filt Rate > 60 mL/min (>60); Globulin 3.2 g/dL (1.7-4.1); Glucose 95 mg/dL (70-100); HDL Cholesterol 35 mg/dL (40-60); HEMOLYSIS < 15 (0-50); LDL Cholesterol Calculated 96 mg/dL (<100); Magnesium 1.9 mg/dL (1.6-2.3); Potassium 3.8 mmol/L (3.4-5.1); Sodium 137 mmol/L (137-145); Total Protein 7.6 g/dL (6.3-8.2); Triglycerides 83 mg/dL (35-150)
[2023-05-31 13:09] LABS: Free T3, Triiodothyronine Free 3.38 pg/mL (2.77-5.27); Free T4, Direct Thyroxine 1.35 ng/dL (0.78-2.19)
[2023-05-31 13:09] LABS: Appearance Urine UA CLEAR; Bilirubin Urine UA NEGATIVE (NEGATIVE); Color Urine UA YELLOW; Glucose Urine UA NEGATIVE (Negative); Ketones Urine UA NEGATIVE (NEGATIVE); Leukocyte Esterase Urine UA NEGATIVE (NEGATIVE); Nitrite Urine UA NEGATIVE (Negative); Occult Blood Urine UA NEGATIVE (Negative); Protein Urine UA NEGATIVE (Negative); Urobilinogen Urine UA 0.2 E.U./dL (0.2)
[2023-05-31 13:23] LABS: Thyroid Stimulating Hormone 0.633 uIU/mL (0.47-4.68)
[2023-05-31 13:24] LABS: pH Urine UA 7.5 (4.5-8.0)
[2023-05-31 13:31] LABS: Bacteria Urine Occasional (0-1); Culture Indicated Urine Cult Not Indicated; RBC Urine None Seen (0-5/HPF); Squamous Epithelial Cell Urine 0-1 /HPF (0-5/HPF); WBC Urine None Seen (0-5/HPF)
[2023-05-31 13:33] LABS: Vitamin B12 > 1000 pg/mL (239-931)
[2023-05-31 16:39] LABS: Vitamin D 25 Hydroxy (D3) 35.1 ng/mL (30.0-100.0)
== END ==
PROVIDERS: PCP Family Medicine; Referring Provider Family Medicine; Visit Provider Family Medicine
DX: R55 Syncope and collapse (principal); E78.00 Pure hypercholesterolemia, unspecified; Z13.0 Encounter for screening for diseases of the blood and blood-forming organs and certain disorders involving the immune mechanism; I47.10 Supraventricular tachycardia, unspecified; E55.9 Vitamin D deficiency, unspecified; N92.0 Excessive and frequent menstruation with regular cycle; E87.1 Hypo-osmolality and hyponatremia
CPT/HCPCS: 36415; 70553; 80053; 80061; 81001; 82306; 82607; 83735; 84439; 84443; 84481; 85025

== ENCOUNTER 2023-08-22 11:23 | Emergency (ER) | payer OTHER, SELFPAY ==
[2023-08-22] VITALS (7 sets, daily range): BP systolic 105–118; BP diastolic 66–77; PULSE 66–80; RESP 18–20; TEMP 36.6; O2SAT 95–100; BMI 20.5
[2023-08-22 12:22] LABS: Add Manual Diff / Slide Review NO; Basophils Absolute Auto 0 /uL (0-100); Basophils Percent Auto 0.6 % (0-2); Eosinophils Absolute Auto 0 /uL (0-450); Eosinophils Percent Auto 0.5 % (2-4); Hematocrit 36.8 % (36-46); Hemoglobin 12.3 g/dL (12.0-16.0); Lymphocytes Absolute Auto 2500 /uL (1100-4500); Lymphocytes Percent Auto 37.5 % (25-40); Mean Corpuscular HGB Conc 33.5 % (30-36); Mean Corpuscular Volume 89.4 fL (80-100); Monocytes Absolute Auto 400 /uL (0-900); Monocytes Percent Auto 5.5 % (3-14); Neutrophils Absolute Auto 3700 /uL (1500-7000); Neutrophils Percent Auto 55.9 % (50-75); Platelet Count 220 X10^3/uL (150-400); Red Blood Cell Count 4.11 X10^6/uL (4.0-5.2); Red Cell Distribution Width 12.8 % (11.6-14.8); White Blood Cell Count 6.6 X10^3/uL (4.5-11.0)
[2023-08-22 12:33] LABS: Blood Urea Nitrogen 11 mg/dL (7-17); Calcium 9.5 mg/dL (8.4-10.2); Carbon Dioxide 30 mmol/L (22-32); Chloride 106 mmol/L (98-107); Estimated Glomerular Filt Rate > 60 mL/min (>60); Glucose 74 mg/dL (70-100); HEMOLYSIS < 15 (0-50); Sodium 139 mmol/L (137-145)
--- NOTE | 2023-08-22 12:34 | ED.GENADULT ---
HPI - General Adult General Chief complaint: Syncope Stated complaint: syncope Time Seen by Provider: 08/22/23 11:55 Source: patient Mode of arrival: Ambulatory History of Present Illness HPI narrative: Patient is a 42-year-old female here for evaluation of a syncopal episode. She was at the dentist today having a tooth pulled. She stated that she only received local anesthesia for this. She did not think that it was particularly uncomfortable. When she went to sit up she stated that she felt like she was going to pass out. Apparently she did have a short period of loss of consciousness. This happened once again when they tried to sit her up. She stated that prior to the episode she did not have chest pain or palpitations or shortness of breath. She currently states she was feeling much better if not resolved. She had a another syncopal episode in May of this year. Had a 7 day Holter monitor without any diagnosis. She then had a 30 day event monitor and did not have any specific diagnosis. They recommended a loop recorder but the patient declined this. It appears that she had a another episode in December of last year where she passed out. She currently is asymptomatic. Related Data Home Medications Medication Instructions Recorded Confirmed CA/FE/FOLIC ACID/VIT A/VIT B 1 tab PO QDAY ##0 08/13/11 (# VITAMIN) Allergies Allergy/AdvReac Type Severity Reaction Status Date / Time Latex, Natural Rubber Allergy Severe Hives Verified 11/07/22 14:56 adhesive Allergy Mild Verified 11/07/22 14:56 aloe Allergy Mild Verified 11/07/22 14:56 nut - unspecified Allergy Unknown Verified 11/07/22 14:56 hydrocodone AdvReac Mild NAUSEA Verified 11/07/22 14:56 Review of Systems Review of Systems ROS Unobtainable: All systems reviewed & are unremarkable except as noted in HPI and below Patient History Social History Smoking Status: Never smoker Smoking Status: Never smoker alcohol intake frequency: holidays/special occasions only Substance Use Type: does not use Exam Initial Vital Signs Initial Vital Signs: Vital Signs Temperature 97.8 F 08/22/23 11:25 Pulse Rate 80 08/22/23 11:25 Respiratory Rate 18 08/22/23 11:25 Blood Pressure 118/77 08/22/23 11:25 Pulse Oximetry 100 04/18/24 11:25 Oxygen Delivery Method Room Air 08/22/23 11:25 Const General: cooperative, comfortable and No ill appearing HENSHELLY Head: normal to inspection and normocephalic Face and sinus: normal facial exam Eyes General: Yes appearance normal, both eyes and all related structures Resp Effort & Inspection: normal respiratory effort Auscultation: clear to auscultation bilaterally Cardio Rate: regular rate Rhythm: regular rhythm GI Inspection: normal to inspection and non-distended Skin General: no rashes or lesions noted Neuro General: patient alert, patient awake, patient oriented x3 and moves all extremities Cognition: normal cognition Speech: speech normal Gait: normal gait Motor: muscle tone normal throughout Extrem General: capillary refill normal Course Orders Ordered: ED Orders 08/22/23 11:56 EKG-12 Lead Stat 08/22/23 12:12 Basic Metabolic Panel Stat Complete Blood Count AUTO DIFF Stat Discontinued Medications Sodium Chloride (Normal Saline 0.9%) 1,000 mls @ 1,000 mls/hr IV BOLUS ONE Stop: 08/22/23 13:34 Last Infusion: 08/22/23 14:31 Dose: Infused Documented By: Admin: 08/22/23 12:36 Dose: 1,000 mls/hr Documented By: GWENDOLYN Vital Signs Vital signs: Vital Signs - 8 hr 08/22/23 11:25 08/22/23 11:57 08/22/23 12:00 Temperature 97.8 F Pulse Rate 80 77 Respiratory Rate 18 Blood Pressure 118/77 114/66 Pulse Oximetry 100 100 Oxygen Delivery Method Room Air 08/22/23 12:00 08/22/23 12:30 08/22/23 12:30 Temperature Pulse Rate 74 70 Respiratory Rate 18 Blood Pressure 105/68 Pulse Oximetry 100 95 Oxygen Delivery Method 08/22/23 13:00 08/22/23 13:00 08/22/23 13:30 Temperature Pulse Rate 68 Respiratory Rate 20 Blood Pressure 113/68 116/71 Pulse Oximetry 97 Oxygen Delivery Method 08/22/23 13:30 08/22/23 14:00 08/22/23 14:00 Temperature Pulse Rate 66 71 Respiratory Rate 18 18 Blood Pressure 114/69 Pulse Oximetry 100 100 Oxygen Delivery Method Medical Decision Making Lab Data Lab results reviewed: Yes I reviewed the patient's lab results. 08/22/23 12:12 04/18/24 12:12 Labs: Lab Results 08/22/23 Range/Units 12:12 WBC 6.6 (4.5-11.0) X10^3/uL RBC 4.11 (4.0-5.2) X10^6/uL Hgb 12.3 (12.0-16.0) g/dL Hct 36.8 (36-46) % MCV 89.4 (80-100) fL MCH 30.0 (26-34) PG MCHC 33.5 (30-36) % RDW 12.8 (11.6-14.8) % Plt Count 220 (150-400) X10^3/uL Neut % (Auto) 55.9 (50-75) % Lymph % (Auto) 37.5 (25-40) % Orange % (Auto) 5.5 (3-14) % Eos % (Auto) 0.5 L (2-4) % Baso % (Auto) 0.6 (0-2) % Neut # (Auto) 3700 (9282-2870) /uL Lymph # (Auto) 2500 (9877-0150) /uL [place] # (Auto) 400 (0-900) /uL Eos # (Auto) 0 (0-450) /uL Baso # (Auto) 0 (0-100) /uL Sodium 139 (137-145) mmol/L Potassium 4.0 (3.4-5.1) mmol/L Chloride 106 (98-107) mmol/L Carbon Dioxide 30 (22-32) mmol/L BUN 11 (7-17) mg/dL Creatinine 0.58 (0.52-1.04) mg/dL Estimated GFR > 60 (>60) mL/min BUN/Creatinine Ratio 19.0 (6-22) Glucose 74 (70-100) mg/dL Calcium 9.5 (8.4-10.2) mg/dL Point of Care Testing Test Results Negative Urine Dip Bedside Urine Glucose Negative Bedside Urine Bilirubin - Negative Bedside Urine Ketone - Negative Urine Specific [place] 1.015 Bedside Urine Occult Blood - Negative Bedside Urine pH 7.5 Bedside Urine Protein - Negative Bedside Urine Urobilinogen - Negative Bedside Urine Nitrite - Negative Bedside Urine Leukocytes - Negative Esterase Point of care testing: Point of Care Testing Test Results Negative Urine Dip Bedside Urine Glucose Negative Bedside Urine Bilirubin - Negative Bedside Urine Ketone - Negative Urine Specific [place] 1.015 Bedside Urine Occult Blood - Negative Bedside Urine pH 7.5 Bedside Urine Protein - Negative Bedside Urine Urobilinogen - Negative Bedside Urine Nitrite - Negative Bedside Urine Leukocytes - Negative Esterase ECG Data Attestation: I personally reviewed and interpreted this ECG as follows: Interpretation: Sinus rhythm Ventricular rate is 72 Normal axis Normal QRS Normal QTC No ST T wave changes MDM Narrative Medical decision making narrative: Patient did have a syncopal episode today. If it was today's isolated event what is stated that it is most likely a vasovagal however in the setting where she had a unexplained syncopal episode in May this year and potentially another syncopal episode in December of last year the concern would potentially be for an arrhythmia. Her EKG here and monitoring here are unremarkable. I had a long discussion with the patient and her regarding this. I did recommend the loop recorder. Patient was somewhat hesitant about this. Rest of her workup here in the ER is unremarkable. Patient can be safely discharged home with return precautions. She expressed understanding and agreement. Discharge Plan Departure Patient Disposition: Home Clinical Impression: Syncope Instructions: Fainting Activity Restrictions/Additional Instructions: Recommend that you continue to take all of your medications as directed. Contact your primary care doctor for a follow-up. I would recommend that you also call the molecular biology scientist. I would seriously consider the loop recorder. Return to the emergency department for new or worsening symptoms. Prescriptions: No Action CA/FE/FOLIC ACID/VIT A/VIT B (# VITAMIN) 1 tab PO QDAY Qty: 0 Referrals: Marisabel Murcia MD [Primary Care Provider] - Stand Alone Forms: Patient Portal/API
[2023-08-22] MEDS: SODIUM CHLORIDE 0.9% 1,000 ML 1000 ML IV (12:36)
--- NOTE | 2023-08-22 12:45 | PC.NURSE ---
Patient states that she had gestational diabetes.
--- NOTE | 2023-08-22 12:46 | PC.NURSE ---
Respiratory therapist at bedside performing EKG.
== END 2023-08-22 14:50 | disposition home or self-care (01) ==
PROVIDERS: Emergency Provider Emergency Medicine; PCP Family Medicine
DX: R55 Syncope and collapse (principal)
CPT/HCPCS: 36415; 80048; 81003; 81025; 85025; 93005; 96360; 96361; 99284

== ENCOUNTER → 2023-12-23 | Outpatient (CLI) | payer OTHER, SELFPAY ==
--- NOTE | 2023-12-23 16:06 | DI.MG.S_ITS ---
BILATERAL DIGITAL SCREENING MAMMOGRAM 3D/2D WITH CAD: 12/23/2023 CLINICAL: Routine screening. Family history of breast cancer. Comparison is made to exam dated: 12/19/2022 mammogram - [facility]. Both breasts are heterogeneously dense, which may obscure small masses (category c / 51-75% glandular tissue). Current study was also evaluated with a Computer Aided Detection (CAD) system. No significant masses, calcifications, or other findings are seen in either breast. There has been no significant interval change. IMPRESSION: NEGATIVE There is no mammographic evidence of malignancy. A 1 year screening mammogram is recommended. Based on the Tyrer Cuzick model (a risk assessment model) the patient's lifetime risk is 11.4% and her 10 year risk is 1.5%. According to the ACR, ACS, and NCCN guidelines, an annual breast MRI exam along with mammogram is recommended if the patient's lifetime risk is 20% or greater. This exam was interpreted at Station ID: [id number]. NOTE: For mammograms, a report in lay terms will be sent to the patient. Approximately 15% of breast malignancies will not be visualized mammographically. In the management of a palpable breast mass, a negative mammogram must not discourage biopsy of a clinically suspicious lesion. Electronically Signed By: Amber Serrano M.D., Ph.D. oscar/missael:12/25/2023 14:06:30 letter sent: Normal Exam ACR BI-RADS Category 1: Negative 3341F
== END ==
LOC: MAMMO 16:06
PROVIDERS: PCP Family Medicine; Referring Provider Family Medicine; Visit Provider Family Medicine
DX: Z12.31 Encounter for screening mammogram for malignant neoplasm of breast (principal); Z80.3 Family history of malignant neoplasm of breast; R92.333 Mammographic heterogeneous density, bilateral breasts
CPT/HCPCS: 77063; 77067

== ENCOUNTER 2024-07-07 18:37 | Emergency (ER) | payer OTHER, SELFPAY ==
[2024-07-07] VITALS (10 sets, daily range): BP systolic 98–137; BP diastolic 65–88; PULSE 64–82; RESP 16–25; TEMP 36.6; O2SAT 95–100; BMI 23.6
--- NOTE | 2024-07-07 19:09 | EKG_ITS ---
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
--- NOTE | 2024-07-07 19:09 | DI.RAD.S_ITS ---
PROCEDURE: XR CHEST 1V INDICATIONS: chest pain TECHNIQUE: One view of the chest was acquired. COMPARISON: [facility], [facility]OB, XR CHEST 1V, 12/14/2022, 4:23. [facility], , CHEST 2 VIEW, 07/11/2017, 15:25. FINDINGS: Surgical changes and devices: None. Lungs and pleura: Lungs are clear. No pleural effusions or pneumothorax. Mediastinum: Mediastinal contours appear normal. Heart size is normal. Bones and chest wall: No suspicious bony lesions. Overlying soft tissues appear unremarkable. IMPRESSION: No acute cardiopulmonary abnormality is seen. Dictated by: Ken Guerra M.D. on 07/07/2024 at 19:58 Approved by: Ken Guerra M.D. on 07/07/2024 at 19:58
[2024-07-07 19:17] LABS: Add Manual Diff / Slide Review NO; Basophils Absolute Auto 100 /uL (0-100); Eosinophils Absolute Auto 100 /uL (0-450); Eosinophils Percent Auto 1.5 % (2-4); Hematocrit 40.3 % (36-46); Hemoglobin 13.7 g/dL (12.0-16.0); Lymphocytes Absolute Auto 3100 /uL (1100-4500); Lymphocytes Percent Auto 36.3 % (25-40); Mean Corpuscular HGB Conc 34.1 % (30-36); Mean Corpuscular Hemoglobin 30.2 PG (26-34); Mean Corpuscular Volume 88.6 fL (80-100); Monocytes Absolute Auto 500 /uL (0-900); Monocytes Percent Auto 5.9 % (3-14); Neutrophils Absolute Auto 4700 /uL (1500-7000); Neutrophils Percent Auto 55.3 % (50-75); Platelet Count 255 X10^3/uL (150-400); Red Blood Cell Count 4.54 X10^6/uL (4.0-5.2); Red Cell Distribution Width 12.3 % (11.6-14.8); White Blood Cell Count 8.5 X10^3/uL (4.5-11.0)
[2024-07-07 19:19] LABS: PTT Partial Thromboplastin Tim 33 SECONDS (25.1-36.5)
[2024-07-07 19:22] LABS: Alanine Aminotransferase 24 IU/L (<35); Albumin 4.7 g/dL (3.5-5.0); Albumin Globulin Ratio 1.4 (1.0-2.8); Alkaline Phosphatase 52 U/L (38-126); Aspartate Aminotransferase 33 IU/L (14-36); Bilirubin Total 0.5 mg/dL (0.2-1.3); Blood Urea Nitrogen 12 mg/dL (7-17); Calcium 9.4 mg/dL (8.4-10.2); Carbon Dioxide 23 mmol/L (22-32); Chloride 101 mmol/L (98-107); Creatine Kinase 47 U/L (30-135); Estimated Glomerular Filt Rate > 60 mL/min (>60); Globulin 3.4 g/dL (1.7-4.1); Glucose 102 mg/dL (70-100); HEMOLYSIS 38 (0-50); Lipase 153 U/L (23-300); Magnesium 1.9 mg/dL (1.6-2.3); Potassium 4.4 mmol/L (3.4-5.1); Sodium 135 mmol/L (137-145); Total Protein 8.1 g/dL (6.3-8.2)
[2024-07-07 19:33] LABS: NT-proBNP (BNP-Adult 18+) 29 pg/mL (<125); Troponin I < 0.012 ng/mL (0.01-0.034)
[2024-07-07 19:48] LABS: D Dimer < 215 ng/ml (<500)
--- NOTE | 2024-07-07 21:24 | ED.SOB ---
HPI - SOB/Dyspnea General Chief Complaint: Shortness of Breath/Dyspnea Stated Complaint: SOB, ringin in ears, blurry vision. LOC Time Seen by Provider: 07/07/24 19:27 History of Present Illness HPI Narrative: Patient is a healthy 43-year-old female who presents to day with a near syncopal episode. She reports that today she was driving she got extremely sweaty dripping from her face felt like she might pass out she did not. She would ringing in her ears blurry vision. Gobles like she was short of breath. She has had least 4 of these episodes over the last year and a half. She has been worked up and seen a variety of specialists including Cardiology she had a Holter monitor for 6 weeks she has been seen and worked up for many perimenopause, she has seen a rig supervisor. Overall she was frustrated. She reports that all of his episodes happened while on her period. She was currently on her. She had a very large blood clot. She reports that this menstrual cycle is heavier than others. No significant abdominal cramping. She was just seen by her primary who has done a variety of blood work and blood tests. She now has been in the emergency department for number of hours and overall feeling much better. Related Data Home Medications Medication Instructions Recorded Confirmed CA/FE/FOLIC ACID/VIT A/VIT B 1 tab PO QDAY ##0 08/13/11 (# VITAMIN) Allergies Allergy/AdvReac Type Severity Reaction Status Date / Time Latex, Natural Rubber Allergy Severe Hives Verified 11/07/22 14:56 adhesive Allergy Mild Verified 11/07/22 14:56 aloe Allergy Mild Verified 11/07/22 14:56 nut - unspecified Allergy Unknown Verified 11/07/22 14:56 hydrocodone AdvReac Mild NAUSEA Verified 11/07/22 14:56 Patient History Social History Smoking Status: Never smoker Smoking Status: Never smoker alcohol intake frequency: holidays/special occasions only Exam Initial Vital Signs Initial Vital Signs: Vital Signs Temperature 97.8 F 07/07/24 18:48 Pulse Rate 77 07/07/24 18:48 Respiratory Rate 16 07/07/24 18:48 Blood Pressure 137/88 07/07/24 18:48 Pulse Oximetry 100 07/07/24 18:48 Oxygen Delivery Method Room Air 07/07/24 18:48 GENERAL: Alert well-appearing 43-year-old female and in no acute distress. HEENT: Head atraumatic,EOMI, pupils reactive, face symmetric, moist mucous membranes CARDIOVASCULAR: Regular rate and rhythm without murmurs, rubs or gallops. RESPIRATORY: Breath sounds equal bilaterally, no wheezes rales or rhonchi. ABDOMEN: Soft, nontender. Normoactive bowel sounds all 4 quadrants. No guarding or rebound. EXTREMITIES: Normal range of motion, no clubbing or edema. Neurovascularly intact NEUROLOGICAL: Alert and oriented x4.Normal gait and speech. Cranial nerves II through XII grossly intact. SKIN: Warm, dry, no laceration, no petechiae, no rashes or lesions. Scores GCS Bill coma scale eye opening: Spontaneous Bill coma scale verbal response: Orientated [place] coma scale motor response: Obey commands [place] coma scale total score: 15 Course Orders Ordered: ED Orders 07/07/24 19:01 Complete Blood Count AUTO DIFF Stat Comprehensive Metabolic Panel Stat D Dimer Stat Lipase Stat Magnesium Stat NT-proBNP (BNP-Adult 18+) Stat PTT Partial Thromboplastin Jose Manuel Stat Prothrombin Time INR Stat Troponin & CK Cardiac Panel Stat 07/07/24 19:09 XR chest 1V Stat EKG-12 Lead Stat Vital Signs Vital signs: Vital Signs - 8 hr 07/07/24 18:59 07/07/24 19:00 07/07/24 19:00 Pulse Rate 77 77 Respiratory Rate Blood Pressure 123/80 Pulse Oximetry 100 100 Oxygen Delivery Method 07/07/24 19:30 07/07/24 19:30 07/07/24 20:00 Pulse Rate 70 64 Respiratory Rate 16 21 Blood Pressure 118/65 Pulse Oximetry 99 100 Oxygen Delivery Method Room Air 07/07/24 20:00 07/07/24 20:30 07/07/24 20:31 Pulse Rate 82 74 Respiratory Rate 25 H Blood Pressure 98/66 Pulse Oximetry 95 99 Oxygen Delivery Method 07/07/24 20:31 07/07/24 21:00 07/07/24 21:00 Pulse Rate 68 Respiratory Rate 17 Blood Pressure 127/70 107/68 Pulse Oximetry 98 Oxygen Delivery Method 07/07/24 21:30 07/07/24 21:31 07/07/24 21:31 Pulse Rate 68 69 Respiratory Rate 21 21 Blood Pressure 133/69 Pulse Oximetry 100 100 Oxygen Delivery Method MDM - SOB/Dyspnea Lab Data 07/07/24 19:01 07/07/24 19:01 Labs: Lab Results 07/07/24 Range/Units 19:01 WBC 8.5 (4.5-11.0) X10^3/uL RBC 4.54 (4.0-5.2) X10^6/uL Hgb 13.7 (12.0-16.0) g/dL Hct 40.3 (36-46) % MCV 88.6 (80-100) fL MCH 30.2 (26-34) PG MCHC 34.1 (30-36) % RDW 12.3 (11.6-14.8) % Plt Count 255 (150-400) X10^3/uL Neut % (Auto) 55.3 (50-75) % Lymph % (Auto) 36.3 (25-40) % [place] % (Auto) 5.9 (3-14) % Eos % (Auto) 1.5 L (2-4) % Baso % (Auto) 1.0 (0-2) % Neut # (Auto) 4700 (8190-3483) /uL Lymph # (Auto) 3100 (5718-6085) /uL [place] # (Auto) 500 (0-900) /uL Eos # (Auto) 100 (0-450) /uL Baso # (Auto) 100 (0-100) /uL PT 11.0 (9.4-12.5) SECONDS INR 1.0 (0.9-1.3) APTT 33 (25.1-36.5) SECONDS D-Dimer < 215 (<500) ng/ml Sodium 135 L (137-145) mmol/L Potassium 4.4 (3.4-5.1) mmol/L Chloride 101 (98-107) mmol/L Carbon Dioxide 23 (22-32) mmol/L BUN 12 (7-17) mg/dL Creatinine 0.63 (0.52-1.04) mg/dL Estimated GFR > 60 (>60) mL/min BUN/Creatinine Ratio 19.0 (6-22) Glucose 102 H (70-100) mg/dL Calcium 9.4 (8.4-10.2) mg/dL Magnesium 1.9 (1.6-2.3) mg/dL Total Bilirubin 0.5 (0.2-1.3) mg/dL AST 33 (14-36) IU/L ALT 24 (<35) IU/L Alkaline Phosphatase 52 (38-126) U/L Total Creatine Kinase 47 (30-135) U/L Troponin I < 0.012 (0.01-0.034) ng/mL NT-Pro-B Natriuret Pep 29 (<125) pg/mL Total Protein 8.1 (6.3-8.2) g/dL Albumin 4.7 (3.5-5.0) g/dL Globulin 3.4 (1.7-4.1) g/dL Albumin/Globulin Ratio 1.4 (1.0-2.8) Lipase 153 (23-300) U/L Imaging Data Chest x-ray: Radiologist's Impression: PROCEDURE: XR CHEST 1V INDICATIONS: chest pain TECHNIQUE: One view of the chest was acquired. COMPARISON: [facility], , XR CHEST 1V, 12/14/2022, 4:23. [facility], , CHEST 2 VIEW, 07/11/2017, 15:25. FINDINGS: Surgical changes and devices: None. Lungs and pleura: Lungs are clear. No pleural effusions or pneumothorax. Mediastinum: Mediastinal contours appear normal. Heart size is normal. Bones and chest wall: No suspicious bony lesions. Overlying soft tissues appear unremarkable. IMPRESSION: No acute cardiopulmonary abnormality is seen. Dictated by: Ken Guerra M.D. on 07/07/2024 at 19:58 Approved by: Ken Guerra M.D. on 07/07/2024 at 19:58 ECG Data Attestation: I personally reviewed and interpreted this ECG as follows: Prior ECG tracings: available for review Interpretation: Normal sinus rhythm rate 79 KS interval 160 QRS [address] changes no T-wave inversions MDM Narrative Medical decision making narrative: Patient well-appearing 43-year-old female who has recurrent syncopal episodes. Unclear why at this time. Work and evaluation in the emergency department's overall reassuring. She has no evidence of anemia leukocytosis electrolyte abnormality. D-dimer is also negative. She has no focal deficits. She was feels 100% better now. She reports that she eats regular meals she in fact had a donut just prior to her episode today. At this time no need for any further emergency department evaluation she feels comfortable going home. EKGs reviewed no ischemia or arrhythmia Chest x-ray reviewed no acute cardiopulmonary process Discharge Plan Departure Patient Disposition: Home Clinical Impression: Fainting episodes Instructions: DI for Syncope in Adults (Fainting) Activity Restrictions/Additional Instructions: It was nice to see you today. So sorry you have to go through this. I hope we figure out what is going on with you. You are doing a great job Follow up with Dr. Murcia Keep taking your medications Return to ED if you should have any new or worsening symptoms Prescriptions: No Action CA/FE/FOLIC ACID/VIT A/VIT B (# VITAMIN) 1 tab PO QDAY Qty: 0 Referrals: Marisabel Murcia MD [Primary Care Provider] - Stand Alone Forms: Patient Portal/API/Survey
== END 2024-07-07 21:53 | disposition home or self-care (01) ==
PROVIDERS: Emergency Provider Emergency Medicine; PCP Family Medicine
DX: R55 Syncope and collapse (principal); R07.9 Chest pain, unspecified
CPT/HCPCS: 36415; 71045; 80053; 82550; 83690; 83735; 83880; 84484; 85025; 85379; 85610; 85730; 93005; 99283; 99284

== ENCOUNTER → 2024-08-17 13:58 | Outpatient (CLI) | payer OTHER, SELFPAY ==
--- NOTE | 2024-08-17 14:08 | DI.RAD.S_ITS ---
PROCEDURE: XR ANKLE LT MIN 3V INDICATIONS: L FOOT/ANKLE PAIN TECHNIQUE: 3 views of the ankle were acquired. COMPARISON: None. FINDINGS: Bones: There are no osseous abnormalities. Tibiotalar and talocalcaneal joints: Normal in width and alignment . Small ankle effusion noted. Soft tissues: Mild diffuse soft swelling appreciated IMPRESSION: Small ankle effusion. Dictated by: Jayden Leon M.D. on 08/18/2024 at 8:05 Approved by: Jayden Leon M.D. on 08/18/2024 at 8:06
--- NOTE | 2024-08-17 14:08 | DI.RAD.S_ITS ---
PROCEDURE: XR FOOT LT MIN 3V INDICATIONS: L FOOT/ANKLE PAIN TECHNIQUE: 3 views of the foot were acquired. COMPARISON: None. FINDINGS: Bones: Mild hallux valgus appreciated. 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 Soft tissues: No soft tissue abnormality. IMPRESSION: Chronic findings as described Dictated by: Jayden Leon M.D. on 08/18/2024 at 8:06 Approved by: Jayden Leon M.D. on 08/18/2024 at 8:07
== END ==
LOC: RAD 14:06
PROVIDERS: PCP Family Medicine; Referring Provider Family Medicine; Visit Provider Family Medicine
DX: M20.12 Hallux valgus (acquired), left foot (principal); M21.42 Flat foot [pes planus] (acquired), left foot; M25.572 Pain in left ankle and joints of left foot; M25.472 Effusion, left ankle
CPT/HCPCS: 73610; 73630